=== PATIENT | female | born 1990 | race Caucasian/White ===

== ENCOUNTER 2019-12-11 15:25 | Observation (INO) | payer OTHER ==
--- NOTE | 2019-12-11 16:12 | ED ---
General Adult HPI - General Chief complaint: Headache Stated complaint: Headache, dizziness Time Seen by Provider: 12/11/19 15:47 Source: patient Mode of arrival: ambulatory Limitations: no limitations - History of Present Illness Initial comments: Dictation was produced using [employer] dictation software. please excuse any grammatical, word or spelling errors. This patient was cared for during a federal and state declared state of emergency secondary to Covid 19 Chief Complaint: 29-year-old female with no significant comorbid disease presents with headache and hair loss History of Present Illness: 89-year-old female for the last 2 weeks she's been having these intermittent headaches that would occur spontaneously. Patient states is localized to the right temporal area. States it radiates down the face. Patient states she'll also get these intermittent dizzy spells. Patient has any symptoms at this time. She decided to come to the emergency Department earlier because of the current pandemic. Patient denies any medical problems. She does have strong family history of cancer. Patient denies any vision loss. She denies any exacerbating or mitigating factors. Denies any temporal relation or association with time of day. The ROS documented in this emergency department record has been reviewed and confirmed by me. Those systems with pertinent positive or negative responses have been documented in the HPI. All other systems are other negative and/or noncontributory. PHYSICAL EXAM: General Impression: Alert and oriented x3, not in acute distress HEENT: Normocephalic atraumatic, extra-ocular movements intact, pupils equal and reactive to light bilaterally, mucous membranes moist. Cardiovascular: Heart regular rate and rhythm Chest: Able to complete full sentences, no retractions, no tachypnea Abdomen: Bowel sounds present, abdomen soft, non-tender, non-distended, no organomegaly Musculoskeletal: Pulses present and equal in all extremities, no peripheral edema Motor: no focal deficits noted Neurological: CN II-XII grossly intact, no focal motor or sensory deficits noted, no ataxia, gait intact Skin: Intact with no visualized rashes. Missing hair over the right temporal area. Scalp skin does not have any rash Psych: Normal affect and mood ED course: 29-year-old male presents with headache and hair loss. signs upon arrival are within acceptable limits. Patient has benign neurologic exam Laboratory evaluation obtained. CBC, coag panel, metabolic panel is unremarkable. Urine hCG is negative. Computed tomography scan of the brain shows no acute processes. There is a partially empty sella which may be incidental finding. Patient reevaluated bedside. Patient's well-appearing. Patient denies any visual changes. There is some concern for pseudotumor cerebri. Patient be admitted with consultation to neurology for neurologic evaluation possibly further workup. - Related Data Home Medications Medication Instructions Recorded Confirmed No Known Home Medications 01/08/14 01/08/14 Allergies Allergy/AdvReac Type Severity Reaction Status Date / Time No Known Allergies Allergy Verified 12/11/19 15:41 Review of Systems ROS Statement: Those systems with pertinent positive or pertinent negative responses have been documented in the HPI. ROS Other: All systems not noted in ROS Statement are negative. Past Medical History Past Medical History: Eye Disorder Additional Past Medical History / Comment(s): cataracts History of Any Multi-Drug Resistant Organisms: None Reported Additional Past Surgical History / Comment(s): right eye cataract Past Anesthesia/Blood Transfusion Reactions: No Reported Reaction Past Psychological History: No Psychological Hx Reported Smoking Status: Never smoker Past Alcohol Use History: Occasional Past Drug Use History: None Reported General Exam Limitations: no limitations Course Vital Signs 12/11/19 12/11/19 15:39 17:33 Temperature 98.8 F 99 F Pulse Rate 95 69 Respiratory 18 18 Rate Blood Pressure 144/85 142/90 O2 Sat by Pulse 99 98 Oximetry Medical Decision Making - Lab Data Result diagrams: 12/11/19 16:30 12/11/19 16:30 Lab Results 12/11/19 12/11/19 12/11/19 Range/Units 16:30 16:30 16:30 WBC 10.6 (3.8-10.6) k/uL RBC 5.06 (3.80-5.40) m/uL Hgb 14.2 (11.4-16.0) gm/dL Hct 42.6 (34.0-46.0) % MCV 84.1 (80.0-100.0) fL MCH 28.0 (25.0-35.0) pg MCHC 33.3 (31.0-37.0) g/dL RDW 14.3 (11.5-15.5) % Plt Count 396 (150-450) k/uL Neutrophils % 57 % Lymphocytes % 33 % Monocytes % 6 % Eosinophils % 1 % Basophils % 0 % Neutrophils # 6.1 (1.3-7.7) k/uL Lymphocytes # 3.5 (1.0-4.8) k/uL Monocytes # 0.6 (0-1.0) k/uL Eosinophils # 0.2 (0-0.7) k/uL Basophils # 0.0 (0-0.2) k/uL PT 9.6 (9.0-12.0) sec INR 0.9 (<1.2) APTT 23.2 (22.0-30.0) sec Sodium 138 (137-145) mmol/L Potassium 4.0 (3.5-5.1) mmol/L Chloride 107 (98-107) mmol/L Carbon Dioxide 25 (22-30) mmol/L Anion Gap 6 mmol/L BUN 11 (7-17) mg/dL Creatinine 0.69 (0.52-1.04) mg/dL Est GFR (CKD-EPI)AfAm >90 (>60 ml/min/1.73 sqM) Est GFR (CKD-EPI)NonAf >90 (>60 ml/min/1.73 sqM) Glucose 116 H (74-99) mg/dL Calcium 9.3 (8.4-10.2) mg/dL Ionized Calcium Dino 5.1 (4.5-5.3) mg/dL Magnesium 2.0 (1.6-2.3) mg/dL TSH 1.950 (0.465-4.680) mIU/L Urine HCG, Qual (Not Detectd) 12/11/19 Range/Units 16:30 WBC (3.8-10.6) k/uL RBC (3.80-5.40) m/uL Hgb (11.4-16.0) gm/dL Hct (34.0-46.0) % MCV (80.0-100.0) fL MCH (25.0-35.0) pg MCHC (31.0-37.0) g/dL RDW (11.5-15.5) % Plt Count (150-450) k/uL Neutrophils % % Lymphocytes % % Monocytes % % Eosinophils % % Basophils % % Neutrophils # (1.3-7.7) k/uL Lymphocytes # (1.0-4.8) k/uL Monocytes # (0-1.0) k/uL Eosinophils # (0-0.7) k/uL Basophils # (0-0.2) k/uL PT (9.0-12.0) sec INR (<1.2) APTT (22.0-30.0) sec Sodium (137-145) mmol/L Potassium (3.5-5.1) mmol/L Chloride (98-107) mmol/L Carbon Dioxide (22-30) mmol/L Anion Gap mmol/L BUN (7-17) mg/dL Creatinine (0.52-1.04) mg/dL Est GFR (CKD-EPI)AfAm (>60 ml/min/1.73 sqM) Est GFR (CKD-EPI)NonAf (>60 ml/min/1.73 sqM) Glucose (74-99) mg/dL Calcium (8.4-10.2) mg/dL Ionized Calcium Dino (4.5-5.3) mg/dL Magnesium (1.6-2.3) mg/dL TSH (0.465-4.680) mIU/L Urine HCG, Qual Not Detected (Not Detectd) Disposition Clinical Impression: Headache Disposition: ADMITTED IP TO THIS [facility] Condition: Fair Referrals: None,Stated [Primary Care Provider] - 1-2 days Decision Time: 18:08
[2019-12-11 16:40] LABS: Ionized Calcium 5.1 mg/dL (4.5-5.3)
[2019-12-11 16:47] LABS: INR 0.9 (<1.2); Partial Thromboplastin Time 23.2 sec (22.0-30.0); Prothrombin Time 9.6 sec (9.0-12.0)
[2019-12-11 16:48] LABS: African American GFR (CKD) >90 (>60 ml/min/1.73 sqM); Anion Gap 6 mmol/L; Blood Urea Nitrogen 11 mg/dL (7-17); Calcium 9.3 mg/dL (8.4-10.2); Carbon Dioxide 25 mmol/L (22-30); Chloride 107 mmol/L (98-107); Glucose 116 mg/dL (74-99); Non-African American GFR(CKD) >90 (>60 ml/min/1.73 sqM); Sodium 138 mmol/L (137-145)
[2019-12-11 16:50] LABS: Basophils % (A) 0 %; Eosinophils # (A) 0.2 k/uL (0-0.7); Eosinophils % (A) 1 %; HCT 42.6 % (34.0-46.0); HGB 14.2 gm/dL (11.4-16.0); Lymphocytes # (A) 3.5 k/uL (1.0-4.8); Lymphocytes % (A) 33 %; MCHC 33.3 g/dL (31.0-37.0); MCV 84.1 fL (80.0-100.0); Mean Platelet Volume 7.5; Monocytes # (A) 0.6 k/uL (0-1.0); Monocytes % (A) 6 %; Neutrophils # (A) 6.1 k/uL (1.3-7.7); Neutrophils % (A) 57 %; Platelet Count 396 k/uL (150-450); RBC 5.06 m/uL (3.80-5.40); RDW 14.3 % (11.5-15.5); WBC 10.6 k/uL (3.8-10.6)
--- NOTE | 2019-12-11 17:14 | CT ---
EXAMINATION TYPE: CT brain wo con DATE OF EXAM: 12/11/2019 COMPARISON: 05/14/2013 HISTORY: 29-year-old female headache TECHNIQUE: Examination was done in axial plane without intravenous contrast. Coronal and sagittal r econstructions performed. CT DLP: 1098.4 mGycm Automated exposure control for dose reduction was used. FINDINGS: There is no evidence of acute intracranial hemorrhage, acute ischemic changes, mass, mass-effect, or extra-axial fluid collection. There is no effacement of cerebral sulci or basal subarachnoid cister ns. There is no hydrocephalus. There is no midline shift. Pascual-white matter distinction is preserv ed. Partially empty sella which may be an incidental finding. Paranasal sinuses and mastoid air cells are pneumatized. IMPRESSION: Partially empty sella may be an incidental finding. Correlate for possibility of pseudotumor cerebri in this patient demographic. Otherwise, no acute intracranial abnormality seen.
[2019-12-11] MEDS ORDERED: NALOXONE 0.4 MG/ML 1 ML VIAL IV PRN (18:06)
[2019-12-11] MEDS ORDERED: SODIUM CHLORIDE 0.9% 1,000 ML IV SCH (18:15)
[2019-12-11 21:56] LABS: T4, Free (Free Thyroxine) 0.87 ng/dL (0.78-2.19)
[2019-12-11] MEDS ORDERED: MECLIZINE 12.5 MG TAB PO PRN (22:35)
--- NOTE | 2019-12-12 00:14 | HP ---
HISTORY AND PHYSICAL 29-year-old white female was admitted to the hospital for headache, dizziness, right side of the head. She is found to have high blood pressure since being in the hospital. She was also complaining of hair loss. Pain is in the right yarsanism area going down her right face. She has intermittent dizzy spells. She denies any history of medical problems. There is a strong family history of cancer. CT scan of the head was suspicious for pseudotumor cerebri and empty sella syndrome. REVIEW OF SYSTEMS: Fourteen-point review of systems negative except for mentioned in HPI. MEDICATIONS: None. PAST MEDICAL HISTORY: Other past medical history of history of possible hypertension. PHYSICAL EXAMINATION: Vital signs stable. Afebrile. Endocrine: BMI is over 40. Cardiovascular S1-S2. LUNGS: Clear. GI soft. Hematology: Negative Homans. Blood pressure is 140s over 80s to 90s, pulse is in 90s to 100, temp 98-99. Labs reviewed. ASSESSMENT AND PLAN: 1. Hypertension acceleration. 2. Dizziness. 3. Chronic cephalgia on the right side of the head. 4. Await neurologic recommendations. 5. Possible start Antivert. 6. Possibly some blood pressure medication and see if that helps the dizziness. MMODL / IJN: [id number] /
[2019-12-12 13:38] LABS: Hemoglobin A1C 5.4 % (4.0-6.0)
[2019-12-12 14:04] VITALS: BP 144/87; PULSE 82; TEMP 98.6
[2019-12-12 16:23] VITALS: RESP 17
--- NOTE | 2019-12-12 17:18 | P.CNNES ---
History of Present Illness Consult date: 12/12/19 Reason for Consult: headache, possible pseudotumor cerebri Chief complaint: headache History of Present Illness: The patient is a 29-year-old female who is seen in neurologic consultation on December 12, 2019, via teleneurology. The patient reports having had "bad headaches that feel like I'm being tased", since November 29, 2019. She says they are increasing in frequency over the past 2 weeks. In addition to the pain, the patient reports that she is losing her hair, at the same location the pain occurs. The pain is occurring on the right side of her head. She reports occasional numbness and dizziness. The patient also notes some right sided tingling when the pain is present. This pain will last anywhere from 10 minutes to one and half hours. Patient has not found anything to relieve her pain. Patient notes that following the pain, her face feels swollen. Patient reports some blurring of vision from her right eye, when the pain is present. She denies eye pain. Patient denies photophobia and phonophobia. She does report nausea and vomiting. She denies tinnitus and hearing loss. The patient says the pain occurs randomly and sometimes she will have a twitch of her right eye, prior to the onset of the pain. The patient does report having been diagnosed with cluster headaches in the past. She has not seen a neurologist. The patient denies changes in appetite. She denies weight gain and weight loss. She does report feeling cold when other people are comfortable. She denies constipation and diarrhea. Review of Systems See history of chief complaint Past Medical History Past Medical History: Eye Disorder Additional Past Medical History / Comment(s): cataracts History of Any Multi-Drug Resistant Organisms: None Reported Additional Past Surgical History / Comment(s): right eye cataract Past Anesthesia/Blood Transfusion Reactions: No Reported Reaction Past Psychological History: No Psychological Hx Reported Smoking Status: Never smoker Past Alcohol Use History: Occasional Past Drug Use History: None Reported Medications and Allergies Home Medications Medication Instructions Recorded Confirmed Type No Known Home Medications 01/08/14 12/11/19 History Allergies Allergy/AdvReac Type Severity Reaction Status Date / Time No Known Allergies Allergy Verified 12/11/19 18:09 Physical Examination - Vital Signs Vital Signs: Vital Signs Temp Pulse Pulse Resp BP BP Pulse Ox 12/12/19 14:04 98.6 F 82 15 144/87 97 12/12/19 07:40 16 12/12/19 07:00 98.1 F 77 15 116/76 98 12/12/19 03:45 98.3 F 90 147/92 97 12/12/19 00:00 85 18 12/11/19 20:30 98.3 F 85 18 151/99 99 12/11/19 19:05 98.1 F 67 18 164/101 99 12/11/19 17:33 99 F 69 18 142/90 98 12/11/19 15:39 98.8 F 95 18 144/85 99 Intake and Output 12/12/19 12/12/19 12/12/19 06:59 14:59 22:59 Intake Total 160 Balance 160 Intake: Intake, IV Titration 160 Amount Sodium Chloride 0.9% 1, 160 000 ml @ 20 mls/hr IV . Q24H LUIS E Rx#:[id number] Other: Voiding Method Toilet Toilet # Voids 1 1 Gen.: The patient is in no acute distress. She is obese. HEENT: Head is atraumatic, normocephalic. There is an area of her loss in the right temporal parietal region. There is no rash or redness of the skin. Fundus not visualized. There is no scleral icterus. Because membranes are moist. Neck: Supple Heart: Regular rate and rhythm Extremities: Without edema Neurological examination Mental status: The patient is awake, alert and oriented 3. Her speech is clear. Cranial nerves: Pupils are equal, round and reactive to light. Visual rice are full to confrontation. Extraocular muscles are intact. There is no nystagmus. Facial sensations intact. There is no facial asymmetry. Hearing is grossly intact. Uvula and palate are midline. Shoulder shrug is symmetric. Motor: Strength is 5/5 throughout Coordination: Finger to nose and rapid alternating movements are intact. Sensation: Grossly intact to light touch Deep tendon reflexes: 2+/4+ throughout Gait: Steady Results - Laboratory Findings CBC and BMP: 12/11/19 16:30 12/11/19 16:30 Abnormal Lab Findings: Abnormal Labs 12/11/19 16:30 Glucose 116 H Assessment and Plan Assessment: Impressions: 1. Cephalgia, not consistent with pseudotumor cerebri 2. Empty sella per CT scan is a normal variant Plan: Recommendations: 1. MRI of the brain with and without gadolinium, as an outpatient 2. Thyroid studies for etiology of her loss 3. Patient should follow up with a neurologist regarding her headaches as well as results of the brain MRI Time with Patient: Greater than 30 (spent 45 minutes with patient via teleneurology)
== END 2019-12-12 14:41 | disposition home or self-care (01) ==
LOC: EC 15:25 → 4SSUR 18:06
PROVIDERS: ADMIT Family Medicine; ATTEND Family Medicine
DX: R51 Headache (principal); R42 Dizziness and giddiness; L65.9 Nonscarring hair loss, unspecified; I10 Essential (primary) hypertension; H26.9 Unspecified cataract; R20.0 Anesthesia of skin; R20.2 Paresthesia of skin; H53.8 Other visual disturbances; R11.2 Nausea with vomiting, unspecified; E66.9 Obesity, unspecified; Z68.41 Body mass index [BMI] 40.0-44.9, adult; Z98.41 Cataract extraction status, right eye; Z86.69 Personal history of other diseases of the nervous system and sense organs; Z80.9 Family history of malignant neoplasm, unspecified
CPT/HCPCS: 99285; 36415; 84439; 84481; 80048; 84443; 82330; 82533; 83735; 85025; 85610; 85730; 81025; 84146; 83036; 70450; G0378 ×2; 84479

== ENCOUNTER → 2020-02-04 | Outpatient (CLI) | payer OTHER ==
--- NOTE | 2020-02-05 13:28 | MR ---
EXAMINATION TYPE: MR brain wo/w con DATE OF EXAM: 02/04/2020 COMPARISON: CT brain 12/11/2019 HISTORY: Empty Sella syndrome, Pituitary Gland disorder TECHNIQUE: Multiplanar, multisequence images of the brain and brainstem is performed without and with IV contras t, utilizing 12 mL intravenous Gadavist . FINDINGS: Diffusion weighted images demonstrate no evidence of a recent infarct or other diffusion ab normality. There is no extra-axial fluid collection or significant white matter signal abnormality. The ventricular system and cisternal spaces are normal in size and appearance. The brain volume is age appropriate. Midline structures demonstrate stable morphology. Partially empty sella is noted. Corpus callosum, ce rvical medullary junction and cerebellopontine angles are normal. The craniocervical junction appears within normal limits. Post contrast images demonstrate no abnormal enhancement. The dural venous si nuses appear patent. The visualized sinuses are clear and the globes are intact. IMPRESSION: No acute abnormality. Partially empty sella is stable.
== END | disposition home or self-care (01) ==
LOC: RADMRIMAIN 14:41
PROVIDERS: ATTEND Internal Medicine
DX: E23.6 Other disorders of pituitary gland (principal)
CPT/HCPCS: 70553; A9585

== ENCOUNTER → 2020-03-24 | Outpatient (CLI) | payer OTHER ==
--- NOTE | 2020-03-25 10:13 | USB ---
Reason for exam: clinical finding. Indicated problem(s): palpable abnormality in both breasts. Physical Findings: Nurse Summary: 2cm right movable nodule, 1cm left movable nodule (nurse dw). US Breast Limited BILAT Right complete breast ultrasound includes all four quadrants, the retroareolar region and axilla. Finding demonstrates a 5.4 x 3.1 x 2.1cm mixed lesion at 1 o'clock and a 1.0 x 1.0 x 0.6cm mixed lesion at the posterior nipple. Left limited breast ultrasound including focal area of concern, retroareolar and axilla demonstrates a 0.8 x 1.4 x 0.5cm mixed lesion at 10 o'clock. These results were verbally communicated with the patient and result sheet given to the patient on 03/24/20. ASSESSMENT: Probably benign, BI-RAD 3 RECOMMENDATION: Ultrasound of the right breast in 6 months.
== END | disposition home or self-care (01) ==
LOC: RADUSWWP 14:47
PROVIDERS: ATTEND Internal Medicine
DX: N63.10 Unspecified lump in the right breast, unspecified quadrant (principal)

== ENCOUNTER 2020-05-04 21:22 | Emergency (ER) | payer OTHER ==
[2020-05-04 21:29] VITALS: BP 137/90; PULSE 118; RESP 22; TEMP 100.8
[2020-05-04] MEDS ORDERED: IBUPROFEN 600 MG TAB PO STA (21:54)
[2020-05-04] MEDS ORDERED: SODIUM CHLORIDE 0.9% 1,000 ML IV STA ×2 (21:54)
[2020-05-04] MEDS ORDERED: SODIUM CHLORIDE 0.9% 500 ML 500 ML IV STA (21:54)
[2020-05-04] MEDS ORDERED: ACETAMINOPHEN TAB 500 MG TAB PO STA (21:54)
[2020-05-04] MEDS ORDERED: METOCLOPRAMIDE 5 MG/ML 2 ML VIAL IVP STA (22:04)
[2020-05-04] MEDS ORDERED: MORPHINE SULFATE 4 MG/ML SYRINGE IVP STA (22:04)
[2020-05-04] MEDS ORDERED: diphenhydrAMINE 50 MG/ML 1 ML VIAL IVP STA (22:04)
--- NOTE | 2020-05-04 22:07 | ED ---
Headache HPI - General Chief Complaint: Headache Stated Complaint: Headache Time Seen by Provider: 05/04/20 21:54 Source: RN notes reviewed (`), old records reviewed Mode of arrival: ambulatory Limitations: no limitations - History of Present Illness Initial Comments: This is a 3-year-old female DF she presents today for evaluation regards to fever not feeling well sleeping for the last 3 days. Patient also states that she has had acute on chronic headache she states she always does suffer from a headache but states is about her same headache. She states she's been eating and drinking okay no travel history no known sick contacts no nausea vomiting diarrhea no throat pain no chest pain no cough no abdominal pain MD Complaint: headache, other (Fever weakness) -: days(s) (3) Onset Description: gradual Location: frontal, temporal Severity: mild Severity scale (1-10): 3 Quality: throbbing, pulsatile Consistency: constant Improves With: nothing Associated Symptoms: fever, nausea Treatments Prior to Arrival: none - Related Data Home Medications Medication Instructions Recorded Confirmed No Known Home Medications 01/08/14 12/11/19 Allergies Allergy/AdvReac Type Severity Reaction Status Date / Time No Known Allergies Allergy Verified 05/04/20 22:43 Review of Systems ROS Statement: Those systems with pertinent positive or pertinent negative responses have been documented in the HPI. ROS Other: All systems not noted in ROS Statement are negative. Past Medical History Past Medical History: Eye Disorder Additional Past Medical History / Comment(s): cataracts, spinal fluid, Empty Sella Syndrome History of Any Multi-Drug Resistant Organisms: None Reported Additional Past Surgical History / Comment(s): right eye cataract Past Anesthesia/Blood Transfusion Reactions: No Reported Reaction Past Psychological History: No Psychological Hx Reported Smoking Status: Never smoker Past Alcohol Use History: Occasional Past Drug Use History: None Reported General Exam Limitations: no limitations General appearance: alert, in no apparent distress Head exam: Present: atraumatic, normocephalic, normal inspection Eye exam: Present: normal appearance, PERRL, EOMI. Absent: scleral icterus, conjunctival injection, periorbital swelling ENT exam: Present: normal exam, mucous membranes moist Neck exam: Present: normal inspection. Absent: tenderness, meningismus, lymphadenopathy Respiratory exam: Present: normal lung sounds bilaterally. Absent: respiratory distress, wheezes, rales, rhonchi, stridor Cardiovascular Exam: Present: regular rate, normal rhythm, normal heart sounds. Absent: systolic murmur, diastolic murmur, rubs, gallop, clicks GI/Abdominal exam: Present: soft, normal bowel sounds. Absent: distended, tenderness, guarding, rebound, rigid Extremities exam: Present: normal inspection, full ROM, normal capillary refill. Absent: tenderness, pedal edema, joint swelling, calf tenderness Back exam: Present: normal inspection Neurological exam: Present: alert, oriented X3, CN II-XII intact Psychiatric exam: Present: normal affect, normal mood Skin exam: Present: warm, dry, intact, normal color. Absent: rash Course Vital Signs 05/04/20 21:24 Temperature 100.8 F H Pulse Rate 118 H Respiratory 22 Rate Blood Pressure 137/90 O2 Sat by Pulse 97 Oximetry - Reevaluation(s) Reevaluation #1: 05/04/20 22:07 Medical record is reviewed Reevaluation #2: 05/04/20 23:07 A she does have significant improvement here in the ER with Reevaluation #3: 05/04/20 22:45 Patient feels much better headache is much improved fevers much improved Medical Decision Making - Medical Decision Making 30-year-old female DEL with increased sleeping weakness not feeling well and fever today. Patient will admit for continued evaluation rule out coronavirus - Lab Data Result diagrams: 05/04/20 22:15 05/04/20 22:15 Lab Results 05/04/20 05/04/20 05/04/20 Range/Units 22:15 22:15 22:15 WBC 10.8 H (3.8-10.6) k/uL RBC 4.94 (3.80-5.40) m/uL Hgb 13.5 (11.4-16.0) gm/dL Hct 41.3 (34.0-46.0) % MCV 83.7 (80.0-100.0) fL MCH 27.4 (25.0-35.0) pg MCHC 32.7 (31.0-37.0) g/dL RDW 13.3 (11.5-15.5) % Plt Count 329 (150-450) k/uL Neutrophils % 67 % Lymphocytes % 22 % Monocytes % 7 % Eosinophils % 1 % Basophils % 1 % Neutrophils # 7.3 (1.3-7.7) k/uL Lymphocytes # 2.4 (1.0-4.8) k/uL Monocytes # 0.8 (0-1.0) k/uL Eosinophils # 0.1 (0-0.7) k/uL Basophils # 0.1 (0-0.2) k/uL Sodium 134 L (137-145) mmol/L Potassium 4.2 (3.5-5.1) mmol/L Chloride 103 (98-107) mmol/L Carbon Dioxide 24 (22-30) mmol/L Anion Gap 7 mmol/L BUN 9 (7-17) mg/dL Creatinine 0.93 (0.52-1.04) mg/dL Est GFR (CKD-EPI)AfAm >90 (>60 ml/min/1.73 sqM) Est GFR (CKD-EPI)NonAf 83 (>60 ml/min/1.73 sqM) Glucose 111 H (74-99) mg/dL Plasma Lactic Acid Ortega (0.7-2.0) mmol/L Calcium 8.6 (8.4-10.2) mg/dL Total Bilirubin 0.3 (0.2-1.3) mg/dL AST 27 (14-36) U/L ALT 29 (4-34) U/L Alkaline Phosphatase 49 (38-126) U/L Total Protein 6.0 L (6.3-8.2) g/dL Albumin 3.6 (3.5-5.0) g/dL Urine Color Colorless Urine Appearance Clear (Clear) Urine pH 6.5 (5.0-8.0) Ur Specific [place] 1.001 (1.001-1.035) Urine Protein Negative (Negative) Urine Glucose (UA) Negative (Negative) Urine Ketones Negative (Negative) Urine Blood Negative (Negative) Urine Nitrite Negative (Negative) Urine Bilirubin Negative (Negative) Urine Urobilinogen <2.0 (<2.0) mg/dL Ur Leukocyte Esterase Negative (Negative) 05/04/20 Range/Units 22:15 WBC (3.8-10.6) k/uL RBC (3.80-5.40) m/uL Hgb (11.4-16.0) gm/dL Hct (34.0-46.0) % MCV (80.0-100.0) fL MCH (25.0-35.0) pg MCHC (31.0-37.0) g/dL RDW (11.5-15.5) % Plt Count (150-450) k/uL Neutrophils % % Lymphocytes % % Monocytes % % Eosinophils % % Basophils % % Neutrophils # (1.3-7.7) k/uL Lymphocytes # (1.0-4.8) k/uL Monocytes # (0-1.0) k/uL Eosinophils # (0-0.7) k/uL Basophils # (0-0.2) k/uL Sodium (137-145) mmol/L Potassium (3.5-5.1) mmol/L Chloride (98-107) mmol/L Carbon Dioxide (22-30) mmol/L Anion Gap mmol/L BUN (7-17) mg/dL Creatinine (0.52-1.04) mg/dL Est GFR (CKD-EPI)AfAm (>60 ml/min/1.73 sqM) Est GFR (CKD-EPI)NonAf (>60 ml/min/1.73 sqM) Glucose (74-99) mg/dL Plasma Lactic Acid Ortega 1.1 (0.7-2.0) mmol/L Calcium (8.4-10.2) mg/dL Total Bilirubin (0.2-1.3) mg/dL AST (14-36) U/L ALT (4-34) U/L Alkaline Phosphatase (38-126) U/L Total Protein (6.3-8.2) g/dL Albumin (3.5-5.0) g/dL Urine Color Urine Appearance (Clear) Urine pH (5.0-8.0) Ur Specific [place] (1.001-1.035) Urine Protein (Negative) Urine Glucose (UA) (Negative) Urine Ketones (Negative) Urine Blood (Negative) Urine Nitrite (Negative) Urine Bilirubin (Negative) Urine Urobilinogen (<2.0) mg/dL Ur Leukocyte Esterase (Negative) - Radiology Data Radiology results: report reviewed (Chest x-rays negative for acute disease), image reviewed Disposition Clinical Impression: Fever, Weakness Narrative: ro COVID Disposition: ADMITTED IP TO THIS [facility] Condition: Good Is patient prescribed a controlled substance at d/c from ED?: No Referrals: Gertrude Quiles MD [Primary Care Provider] - 1-2 days
--- NOTE | 2020-05-04 22:14 | XR ---
EXAMINATION TYPE: XR chest 2V DATE OF EXAM: 05/04/2020 COMPARISON: 01/02/2012 HISTORY: Fever TECHNIQUE: FINDINGS: Heart is normal. Lungs are clear. Costophrenic angles are clear. There are no hilar masses. Bony thorax appears normal. IMPRESSION: Normal chest. No change.
[2020-05-04 22:28] LABS: Appearance,Urine Clear (Clear); Basophils # (A) 0.1 k/uL (0-0.2); Basophils % (A) 1 %; Bilirubin,Urine Negative (Negative); Blood,Urine Negative (Negative); Color,Urine Colorless; Eosinophils # (A) 0.1 k/uL (0-0.7); Eosinophils % (A) 1 %; Glucose,Urine (UA) Negative (Negative); HCT 41.3 % (34.0-46.0); HGB 13.5 gm/dL (11.4-16.0); Ketones,Urine Negative (Negative); Leukocyte Esterase,Urine Negative (Negative); Lymphocytes # (A) 2.4 k/uL (1.0-4.8); Lymphocytes % (A) 22 %; MCH 27.4 pg (25.0-35.0); MCHC 32.7 g/dL (31.0-37.0); MCV 83.7 fL (80.0-100.0); Mean Platelet Volume 7.4; Monocytes # (A) 0.8 k/uL (0-1.0); Monocytes % (A) 7 %; Neutrophils # (A) 7.3 k/uL (1.3-7.7); Neutrophils % (A) 67 %; Nitrite,Urine Negative (Negative); PH, Urine 6.5 (5.0-8.0); Platelet Count 329 k/uL (150-450); Protein,Urine Negative (Negative); RBC 4.94 m/uL (3.80-5.40); RDW 13.3 % (11.5-15.5); Specific Gravity,Urine 1.001 (1.001-1.035); Urobilinogen,Urine <2.0 mg/dL (<2.0); WBC 10.8 k/uL (3.8-10.6)
[2020-05-04 22:33] LABS: ALT 29 U/L (4-34); AST 27 U/L (14-36); African American GFR (CKD) >90 (>60 ml/min/1.73 sqM); Albumin 3.6 g/dL (3.5-5.0); Alkaline Phosphatase 49 U/L (38-126); Anion Gap 7 mmol/L; Blood Urea Nitrogen 9 mg/dL (7-17); Calcium 8.6 mg/dL (8.4-10.2); Carbon Dioxide 24 mmol/L (22-30); Chloride 103 mmol/L (98-107); Glucose 111 mg/dL (74-99); Non-African American GFR(CKD) 83 (>60 ml/min/1.73 sqM); Potassium 4.2 mmol/L (3.5-5.1); Sodium 134 mmol/L (137-145); Total Bilirubin 0.3 mg/dL (0.2-1.3)
== END 2020-05-04 23:18 | disposition other institution (70) ==
LOC: EC 21:22
DX: R53.1 Weakness (principal); R50.9 Fever, unspecified; R51 Headache; R11.0 Nausea
CPT/HCPCS: 36415; 80053; 83605; 85025; 81003; 87040; 71046; 99285; 96374; 96375 ×2; 96361; J2270; J1200; J2765

== ENCOUNTER → 2020-05-20 | Outpatient (CLI) | payer OTHER ==
[2020-05-20 15:23] VITALS: BP 133/88; PULSE 83; RESP 18; TEMP 98.2
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
--- NOTE | 2020-05-20 15:51 | P.PCN ---
Date of Procedure: 05/20/20 Preoperative Diagnosis: Aspiration cystic lesion right breast Postoperative Diagnosis: Same Procedure(s) Performed: Aspiration cystic area right breast Surgeon: Enma Perez Description of Procedure: The area of palpable change in the right breast at the 1 to 2 o'clock position was prepped using alcohol. A 22-gauge needle on a 10 mL syringe was inserted into the area of concern. Only approximately 1 mL of murky colored fluid was obtained. There was however resolution of the cystic lesion. The patient tolerated the procedure in stable condition. The specimen is sent to pathology for evaluation. This would not correspond to a 5 cm lesion which was described on ultrasound. She will follow up next week and depending on results of his pathology and May recommend ultrasound-guided aspiration of both breasts.
== END | disposition home or self-care (01) ==
LOC: WWCWWP 14:55
PROVIDERS: ATTEND Surgery
DX: N64.9 Disorder of breast, unspecified (principal)
CPT/HCPCS: 88108; 88305

== ENCOUNTER → 2020-09-29 | Outpatient (CLI) | payer OTHER ==
[2020-09-29 09:40] VITALS: BP 129/91; PULSE 90; RESP 18; TEMP 98.3
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
== END | disposition home or self-care (01) ==
LOC: WWCWWP 09:29
PROVIDERS: ATTEND Surgery
DX: Z53.9 Procedure and treatment not carried out, unspecified reason (principal)

== ENCOUNTER 2020-12-04 13:18 | Emergency (ER) | payer OTHER ==
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
[2020-12-04] MEDS ORDERED: diphenhydrAMINE 50 MG/ML 1 ML VIAL IVP STA (16:46)
[2020-12-04] MEDS ORDERED: KETOROLAC 15 MG/ML 1 ML VIAL IVP STA (16:46)
[2020-12-04] MEDS ORDERED: METOCLOPRAMIDE 5 MG/ML 2 ML VIAL IVP STA (16:46)
[2020-12-04] MEDS ORDERED: SODIUM CHLORIDE 0.9% 500 ML 500 ML IV STA (16:46)
[2020-12-04] MEDS ORDERED: DEXAMETHASONE SOD PHOSPHATE 10 MG/ML 1 ML VIAL IV STA (16:47)
[2020-12-04] MEDS ORDERED: MAGNESIUM SULFATE-D5W PMX 1 GM in DEXTROSE/WATER 1 100ML.BAG IVPB ONE (16:47)
[2020-12-04 17:19] LABS: Basophils # (A) 0.1 k/uL (0-0.2); Basophils % (A) 1 %; Eosinophils # (A) 0.2 k/uL (0-0.7); Eosinophils % (A) 1 %; HCT 39.2 % (34.0-46.0); HGB 13.7 gm/dL (11.4-16.0); Lymphocytes # (A) 3.5 k/uL (1.0-4.8); Lymphocytes % (A) 27 %; MCH 28.7 pg (25.0-35.0); MCHC 34.8 g/dL (31.0-37.0); MCV 82.4 fL (80.0-100.0); Mean Platelet Volume 8.5; Monocytes # (A) 0.7 k/uL (0-1.0); Monocytes % (A) 6 %; Neutrophils % (A) 63 %; Platelet Count 416 k/uL (150-450); RBC 4.76 m/uL (3.80-5.40); RDW 13.1 % (11.5-15.5); WBC 12.7 k/uL (3.8-10.6)
[2020-12-04 17:28] LABS: Appearance,Urine Clear (Clear); Bilirubin,Urine Negative (Negative); Blood,Urine Moderate (Negative); Color,Urine Yellow; Glucose,Urine (UA) Negative (Negative); Ketones,Urine Negative (Negative); Leukocyte Esterase,Urine Negative (Negative); Mucus,Urine Rare /hpf; Nitrite,Urine Negative (Negative); Protein,Urine Negative (Negative); RBC,Urine 3 /hpf (0-5); Specific Gravity,Urine 1.019 (1.001-1.035); Squamous Epithelial Cell,Urine 3 /hpf (0-4); Urobilinogen,Urine <2.0 mg/dL (<2.0); WBC,Urine 1 /hpf (0-5)
[2020-12-04 17:29] LABS: ALT 22 U/L (4-34); AST 31 U/L (14-36); African American GFR (CKD) >90 (>60 ml/min/1.73 sqM); Albumin 3.9 g/dL (3.5-5.0); Alkaline Phosphatase 43 U/L (38-126); Anion Gap 5 mmol/L; Blood Urea Nitrogen 16 mg/dL (7-17); Carbon Dioxide 26 mmol/L (22-30); Chloride 103 mmol/L (98-107); Glucose 94 mg/dL (74-99); Non-African American GFR(CKD) >90 (>60 ml/min/1.73 sqM); Potassium 4.6 mmol/L (3.5-5.1); Sodium 134 mmol/L (137-145); Total Bilirubin 0.5 mg/dL (0.2-1.3); Total Protein 6.9 g/dL (6.3-8.2)
[2020-12-04 18:28] VITALS: BP 125/75; PULSE 68; RESP 16; TEMP 98.2
== END 2020-12-04 18:33 | disposition home or self-care (01) ==
LOC: EC 13:18
DX: R51.9 Headache, unspecified (principal); Z20.822 Contact with and (suspected) exposure to COVID-19
CPT/HCPCS: 36415; 80053; 85025; 81001; 81025; 87635; 99284; 96374; 96375; 96361; J1200; J1100; J2765; J3475; J1885

== ENCOUNTER → 2020-12-08 | Outpatient (CLI) | payer OTHER ==
--- NOTE | 2020-12-12 09:51 | MM ---
Reason for exam: clinical finding. History: Family history of breast cancer in paternal aunt at age 40. Physical Findings: Nurse Summary: 7cm nodule in the right breast at 1 o'clock and a 1cm nodule in the left breast at 11 o'clock (nurse TM). [facility] Diagnostic Mammo w CAD SUBHASH Bilateral CC, MLO, and XCCL view(s) were taken. There are scattered fibroglandular densities. Finding: There is a typically benign 28 x 38 mm high density, circumscribed oval mass in the lower inner quadrant, middle position of the right breast consistent with old hemotoma, corresponds to palpable. These results were verbally communicated with the patient and result sheet given to the patient on 12/08/20. ASSESSMENT: Incomplete: need additional imaging evaluation, BI-RAD 0 RECOMMENDATION: Ultrasound of both breasts.
--- NOTE | 2020-12-12 09:54 | USB ---
Reason for exam: additional evaluation requested from abnormal screening. History: Family history of breast cancer in paternal aunt at age 40. US Breast BILAT Right complete breast ultrasound includes all four quadrants, the retroareolar region and axilla. Finding demonstrates a 0.3 x 0.3 x 0.3cm oval, complex, cystic lesion at 12 o'clock, a 1.5 x 1.2 x 1.3cm round, mixed lesion at 1 o'clock, a 4.9 x 3.7 x 1.7cm oval, lobular, mixed lesion at 1 o'clock, a 0.6 x 0.5 x 0.6cm oval, cystic lesion at 2 o'clock, a 0.7 x 0.6 x 0.6cm oval, complex, cystic lesion at the posterior nipple and a 0.4 x 0.6 x 0.4cm oval, mixed lesion at the posterior nipple. Left complete breast ultrasound includes all four quadrants, the retroareolar region and axilla. Finding demonstrates a 0.6 x 0.8 x 0.5cm mixed lesion with vascularity at 10 o'clock BB. These results were verbally communicated with the patient and result sheet given to the patient on 12/08/20. ASSESSMENT: Benign, BI-RAD 2 RECOMMENDATION: Follow-up diagnostic mammogram of both breasts in 6 months. Manage patient on a clinical basis.
== END | disposition home or self-care (01) ==
LOC: RADMAMWWP 14:14
PROVIDERS: ATTEND Surgery
DX: N63.20 Unspecified lump in the left breast, unspecified quadrant (principal); Z80.3 Family history of malignant neoplasm of breast
CPT/HCPCS: 77066

== ENCOUNTER → 2020-12-15 | Outpatient (CLI) | payer OTHER ==
[2020-12-15 15:11] VITALS: BP 139/93; PULSE 100; RESP 18; TEMP 98.4
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
--- NOTE | 2020-12-15 15:46 | P.PCN ---
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 A 22-gauge needle on a 12 mL syringe was inserted into the area of concern. Using negative pressure was moved in and out of the area several samples were obtained. Fluid was not aspirated this did not appear to be a cyst. The specimen was sent for cytology. The patient will follow up next week for results.
== END | disposition home or self-care (01) ==
LOC: WWCWWP 14:46
PROVIDERS: ATTEND Surgery
DX: N62 Hypertrophy of breast (principal); N63.12 Unspecified lump in the right breast, upper inner quadrant

== ENCOUNTER → 2021-02-16 | Outpatient (CLI) | payer OTHER ==
[2021-02-16 13:36] VITALS: BP 143/101; PULSE 94; RESP 18; TEMP 97.5
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
== END ==
LOC: WWCWWP 13:27
PROVIDERS: ATTEND Surgery
DX: N63.12 Unspecified lump in the right breast, upper inner quadrant (principal); N60.01 Solitary cyst of right breast; N62 Hypertrophy of breast

== ENCOUNTER 2021-02-28 10:35 | Day surgery (SDC) | payer OTHER ==
[2021-02-23 14:29] VITALS: BMI 48.0
[~2021-02-28 10:35] MED LIST: HEPARIN SODIUM,PORCINE/PF 5,000 UNIT/0.5 ML SYRINGE SQ PRN; ceFAZolin 3 GM in SODIUM CHLORIDE 0.9% 100 ML IVPB PRN
[2021-02-28] MEDS ORDERED: LACTATED RINGERS 1,000 ML IV ONE ×2 (11:19→14:37)
[2021-02-28] MEDS: ONDANSETRON 4 MG/2 ML VIAL ONE ×2 (11:31→16:15)
[2021-02-28] MEDS ORDERED: SCOPOLAMINE 1.5MG/72HR PATCH TRANSDERM ONE (11:31)
[2021-02-28] MEDS ORDERED: DEXAMETHASONE SOD PHOSPHATE 4 MG/ML 1 ML VIAL IVP ONE (11:32)
[2021-02-28] MEDS ORDERED: fentaNYL (PF) 50 MCG/ML 2 ML AMP ONE (12:03)
[2021-02-28] MEDS ORDERED: HYDROmorphone (PF) 1 MG/ML ONE (12:03)
[2021-02-28] MEDS ORDERED: SUCCINYLCHOLINE CHLORIDE VIAL 200 MG/10 ML VIAL IV ONE (12:03)
[2021-02-28] MEDS ORDERED: PROPOFOL 10 MG/ML 20 ML VIAL IV ONE (12:03)
[2021-02-28] MEDS ORDERED: ROCURONIUM 10 MG/ML (5 ML VIAL) IV ONE (12:03)
[2021-02-28] MEDS ORDERED: LIDOCAINE 1% INJ 10MG/ML (20 ML MDV) ONE (12:03)
[2021-02-28] MEDS ORDERED: NEOSTIGMINE 1 MG/ML 10 ML VIAL ONE (12:03)
[2021-02-28] MEDS ORDERED: MIDAZOLAM 2 MG/2 ML VIAL ONE (12:03)
[2021-02-28] MEDS ORDERED: GLYCOPYRROLATE 0.2 MG/ML 2 ML VIAL ONE (12:03)
--- NOTE | 2021-02-28 15:19 | P.OP ---
Date of Procedure: 02/28/21 Preoperative Diagnosis: Mass right breast/macromastia Postoperative Diagnosis: Same Procedure(s) Performed: Right breast lumpectomy, via mammoplasty incision Anesthesia: MAHENDRA Surgeon: Enma Perez Estimated Blood Loss (ml): 30 IV fluids (ml): 1,000 Pathology: other (Skin and breast tissue, cystic mass right breast) Condition: stable Disposition: same day Indications for Procedure: Tiana is a 30-year-old white female with a recurrent mass in her right breast for which resection has been recommended. She has had an FNA performed of the area without definitive diagnosis. The patient also has macromastia and wishes this to be done via a mammoplasty approach. She was given the option of seeing plastic surgery and declined. The patient was seen in the preoperative area. The palpable mass was marked. Additionally lines were placed for the midline; the meridian and the new nipple location. Vertical lines were dropped from the new nipple location which were 11 cm each in length. The remainder of the incision espitia were were placed for the mammoplasty. The patient was brought to the operating room and following induction of anesthesia both breasts were prepped and draped in a sterile fashion. This was done via an inferior pedicle approach and the inferior pedicle was de- epithelialized. Following this the vertical limbs were dissected free and dissection along the superior medial vertical limb revealed the palpable mass in the breast. This was approximately a 4 x 3 cm cystic lesion which was consistent with what was found preoperative. The fluid was murky in nature. The cystic wall was not completely smooth and there was nodularity at the superior aspect of this. This was completely excised. Excision was close to the skin. Following this continued dissection of the flap was performed; dissection of the lateral flap was also performed. After this the area between the pedicle and the medial extent of the inferior incision was resected and this was repeated on the lateral aspect. The wound was well irrigated. Clips were placed within the area where the lesion had been removed. Surgicel in powder form was placed. The specimen was painted for orientation. The skin flaps were brought together and secured in place using 3-0 Vicryl suture. This was followed by running 4-0 Ethibond subcuticular suture. This was followed by a nylon skin suture. The nipple areolar complex had been marked with a suture and had been sutured over. The area where this was to be matured was marked with a #15 cookie cutter and resected. The skin was opened here and the nipple areolar complex was brought out and secured using 3-0 Vicryl suture followed by a subcuticular Monocryl and a running nylon skin suture. Prior to closure 2 TOSHIA drains were placed one medial and lateral and secured with nylon sutures. The patient tolerated the procedure in stable condition. All instrument and sponge counts were correct at the end of the case. The weight of the specimen was 1.1 pounds.
--- NOTE | 2021-02-28 15:21 | P.DS ---
Providers Attending physician: Enma Perez Primary care physician: Gertrude Quiles MD Plan - Discharge Summary Discharge Rx Participant: Yes New Discharge Prescriptions: No Action No Known Home Medications Discharge Medication List No Known Home Medications 01/08/14 [History] Follow up Appointment(s)/Referral(s): Enma Perez MD [STAFF PHYSICIAN] - 03/09/21 3:20 pm Patient Instructions/Handouts: *Surgery [facility] - Scopalamine Patch Instructions Activity/Diet/Wound Care/Special Instructions: Do not drive today, or if taking narcotic pain medication May shower after 48 hours Wear bra at all times Discharge Disposition: HOME SELF-CARE
[2021-02-28 15:32] VITALS: TEMP 98
[2021-02-28 16:32] VITALS: RESP 16
[2021-02-28 17:52] VITALS: BP 124/79; PULSE 88
== END 2021-02-28 17:55 | disposition home or self-care (01) ==
LOC: OR 10:35
PROVIDERS: ATTEND Surgery
DX: N62 Hypertrophy of breast (principal); Z80.8 Family history of malignant neoplasm of other organs or systems
CPT/HCPCS: 19301; 81025; 88305; J2250; J0330; J1100; J2710; J0690; J2405; J2001; J3010; J1170; J2704; J1644

== ENCOUNTER 2021-03-05 03:53 | Emergency (ER) | payer OTHER ==
[2021-03-05 04:02] VITALS: BP 147/102; PULSE 97; RESP 16; TEMP 97.8
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
== END 2021-03-05 04:49 | disposition home or self-care (01) ==
LOC: EC 03:53
DX: K94.13 Enterostomy malfunction (principal)
CPT/HCPCS: 99282

== ENCOUNTER 2021-03-09 15:24 | Inpatient (IN) | payer OTHER ==
[2021-03-09] MEDS ORDERED: NALOXONE 0.4 MG/ML 1 ML VIAL IV PRN (16:26)
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
[2021-03-09] MEDS ORDERED: VANCOMYCIN IV PER PHARMACY 1 EACH MISC MISCELLANE PRN ×2 (16:42→19:22)
[2021-03-09] MEDS ORDERED: VANCOMYCIN 2,000 MG in SODIUM CHLORIDE 0.9% 500 ML 500 ML IVPB ONE (18:00)
[2021-03-09 18:31] LABS: African American GFR (CKD) >90 (>60 ml/min/1.73 sqM); Non-African American GFR(CKD) >90 (>60 ml/min/1.73 sqM)
[2021-03-09] MEDS ORDERED: HYDROcodone/APAP 5-325MG 1 EACH TAB PO PRN (19:22)
[2021-03-09] MEDS ORDERED: MORPHINE SULFATE 2 MG/ML SYRINGE IVP PRN (19:23)
[2021-03-09] MEDS ORDERED: ONDANSETRON 4 MG/2 ML VIAL IVP PRN (19:23)
[2021-03-09] MEDS ORDERED: ACETAMINOPHEN TAB 325 MG TAB PO PRN (19:23)
[2021-03-09] MEDS: DEXTROSE 5%-0.45% NACL 1,000 ML IV SCH (19:31)
[2021-03-09] MEDS: HYDROcodone/APAP 5-325MG 1 EACH TAB PO PRN (19:39)
--- NOTE | 2021-03-09 20:00 | P.HPIM ---
History of Present Illness H&P Date: 03/09/21 30 years old female patient of mine with past medical history of pseudotumor cerebri, hypertension, empty sella syndrome, migraine who recently saw Dr. Radha ramos for mass in the right breast on 05/19/20. Patient underwent bilateral breast ultrasound which revealed bilateral cystic lesions. Patient underwent aspiration for the cyst on the right breast which resolved for a brief period then reoccurred. Patient underwent multiple aspirations in the cyst of the right breast and finally underwent removal of the mass on 02/28/21 the radius reduction mammoplasty incision. Patient was disheveled with [address]. Patient noted increased drainage around the drain several days ago and was seen in the ER and was diagnosed as cellulitis and was started on Keflex. Patient was seen by the surgeon today and was admitted for medical management. Vitals were reviewed patient is afebrile pulse 105 respiratory rate 16 blood pressure 161/122 oxygen saturation 97% on room air CBC and CMP ordered. blood cultures 2 ordered. Infectious disease consulted continue IV fluids at 75 mL per hour with vancomycin initiated at 2 g every 8 hours. Pharmacy to dose Review of Systems Constitutional: Denies chills, Denies fever, Denies lethargy, Denies malaise, Denies poor appetite, Denies weakness, Denies weight loss Eyes: denies decreased vision, denies diplopia, denies discharge, denies pain Ears: deny: decreased hearing Ears, nose, mouth and throat: Denies dental pain, Denies headache, Denies nasal discharge, Denies nose pain Cardiovascular: Denies chest pain, Denies decreased exercise tolerance, Denies edema, Denies high blood pressure, Denies irregular heart beat, Denies palpitations, Denies paroxysmal nocturnal dyspnea, Denies rapid heart beat, Denies shortness of breath Respiratory: Denies congestion, Denies cough, Denies cough with sputum, Denies dyspnea, Denies home oxygen, Denies wheezing Gastrointestinal: Denies abdominal pain, Denies change in bowel habits, Denies coffee ground emesis, Denies early satiety, Denies excessive gas, Denies heartburn, Denies hematemesis, Denies hematochezia, Denies loss of appetite, Denies nausea, Denies vomiting Genitourinary: Denies dysuria, Denies flank pain, Denies kidney stones, Denies menorrhagia, Denies urgency, Denies urinary frequency Musculoskeletal: Denies gait dysfunction, Denies limitation of motion, Denies morning stiffness, Denies muscle cramps Integumentary: Right breast swelling and redness, Denies wounds, Denies brittle nails, Denies change in hair/nails, Denies darkening of skin Neurological: Denies balance difficulties, Denies change in speech, Denies double vision, Denies gait dysfunction, Denies loss of vision, Denies motor disturbance, Denies numbness, Denies paralysis, Denies paresthesias, Denies seizures Psychiatric: Denies anxiety, Denies depression Endocrine: Denies excessive sweating, Denies excessive thirst, Denies high blood sugars, Denies palpitations Hematologic/Lymphatic: Denies easy bruising, Denies lymphadenopathy Past Medical History Past Medical History: Eye Disorder Additional Past Medical History / Comment(s): cataracts, spinal fluid leakage, Empty Sella Syndrome, headaches. Drained spinal fluid 1 year AGO. History of Any Multi-Drug Resistant Organisms: None Reported Past Surgical History: Adenoidectomy, Breast Surgery Additional Past Surgical History / Comment(s): right eye cataract, ear tubes x 2. Spinal fluid drained 1 YEAR AGO. Past Anesthesia/Blood Transfusion Reactions: Postoperative Nausea & Vomiting (PONV) Past Psychological History: No Psychological Hx Reported Smoking Status: Never smoker Past Alcohol Use History: None Reported Past Drug Use History: None Reported - Past Family History Mother Family Medical History: No Reported History Additional Family Medical History / Comment(s): Maternal grandmother breast cancer, maternal grandfather prostate cancer no other significant family history Medications and Allergies Home Medications Medication Instructions Recorded Confirmed Type Cephalexin [Keflex] 500 mg PO Q6HR 03/09/21 03/09/21 History HYDROcodone/APAP 5-325MG [[place] 1 tab PO Q6H PRN 03/09/21 03/09/21 History 5-325] Allergies Allergy/AdvReac Type Severity Reaction Status Date / Time No Known Allergies Allergy Verified 03/09/21 18:39 Physical Exam Vitals: Vital Signs Temp Pulse Pulse Resp BP BP Pulse Ox 03/09/21 17:35 98.4 F 94 18 134/86 96 03/09/21 15:30 98.0 F 105 H 16 161/122 97 Intake and Output 03/09/21 03/09/21 03/09/21 06:59 14:59 22:59 Other: Weight 130 kg - Constitutional General appearance: cooperative, no acute distress, obese - EENT Eyes: anicteric sclerae, PERRLA, normal appearance ENT: hearing grossly normal - Neck Neck: no lymphadenopathy, normal ROM, no other, no rigidity, no stridor, no thyromegaly - Respiratory Respiratory: bilateral: CTA, negative: diminished, dullness, rales, rhonchi - Cardiovascular Rhythm: regular Heart sounds: normal: S1, S2 Abnormal Heart Sounds: no systolic murmur, no diastolic murmur, no rub, no S3 Gallop, no S4 Gallop, no click, no other - Gastrointestinal General gastrointestinal: normal bowel sounds, soft - Integumentary Integumentary: Incision clean and dry erythema on the inferior aspect of incision output from TOSHIA drain appears serous mild erythema noted around the nipple and under the breast on the right and breast is warm to touch - Neurologic Neurologic: No gross motor deficit - Musculoskeletal Musculoskeletal: gait normal, strength equal bilaterally - Psychiatric Psychiatric: A&O x's 3, appropriate affect Results CBC & Chem 7: 03/09/21 17:55 Thrombosis Risk Factor Assmnt - DVT/VTE Prophylaxis DVT/VTE Prophylaxis: Pharmacologic Prophylaxis ordered - Choose All That Apply Each Factor Represents 1 point: Obesity (BMI >25) Other Risk Factors: Yes Each Risk Factor Represents 2 Points: Major surgery Thrombosis Risk Factor Assessment Total Risk Factor Score: 3 Thrombosis Risk Factor Assessment Level: Moderate Risk Assessment and Plan Plan: #1 right breast cellulitis post removal of mass on 02/28 with 80 reduction mammoplasty incision. TOSHIA drain in place draining serous. Vancomycin initiated. ESR CRP CBC and CMP ordered. Continue IV fluids at 75 mL per hour. Blood cultures to be obtained pain control with [place] and morphine #2 history of migraine Tylenol as needed for pain #3 pseudotumor cerebri with history of spinal fluid removal in the past. Was recommended acetazolamide on discharge but currently not on any medication #4 empty sella syndrome patient was supposed to follow with endocrinology. Currently asymptomatic #5 Cod[place] full code #6 DVT prophylaxis with heparin every 12 #7 disposition patient would need inpatient hospital stay for at least 2 days
[2021-03-09 20:09] LABS: Basophils # (A) 0.1 k/uL (0-0.2); Basophils % (A) 1 %; Eosinophils # (A) 0.4 k/uL (0-0.7); Eosinophils % (A) 3 %; HCT 37.6 % (34.0-46.0); HGB 12.7 gm/dL (11.4-16.0); Lymphocytes # (A) 3.7 k/uL (1.0-4.8); Lymphocytes % (A) 28 %; MCH 28.3 pg (25.0-35.0); MCHC 33.9 g/dL (31.0-37.0); MCV 83.5 fL (80.0-100.0); Mean Platelet Volume 7.3; Monocytes # (A) 0.9 k/uL (0-1.0); Monocytes % (A) 6 %; Neutrophils # (A) 8.1 k/uL (1.3-7.7); Neutrophils % (A) 60 %; Platelet Count 438 k/uL (150-450); RDW 13.1 % (11.5-15.5); WBC 13.5 k/uL (3.8-10.6)
[2021-03-09 20:30] LABS: ALT 32 U/L (4-34); AST 26 U/L (14-36); African American GFR (CKD) >90 (>60 ml/min/1.73 sqM); Albumin 3.7 g/dL (3.5-5.0); Alkaline Phosphatase 71 U/L (38-126); Anion Gap 7 mmol/L; Blood Urea Nitrogen 12 mg/dL (7-17); C Reactive Protein 2.3 mg/dL (<1.0); Calcium 9.1 mg/dL (8.4-10.2); Carbon Dioxide 29 mmol/L (22-30); Chloride 103 mmol/L (98-107); Glucose 121 mg/dL (74-99); Non-African American GFR(CKD) >90 (>60 ml/min/1.73 sqM); Potassium 4.7 mmol/L (3.5-5.1); Sodium 139 mmol/L (137-145); Total Bilirubin 0.1 mg/dL (0.2-1.3); Total Protein 6.5 g/dL (6.3-8.2)
[2021-03-09 21:11] LABS: Erythrocyte Sedimentation Rate 28 mm/hr (0-20)
--- NOTE | 2021-03-09 23:01 | CONS ---
CONSULTATION DATE OF SERVICE: 03/09/2021 REASON FOR CONSULTATION: Right breast cellulitis. HISTORY OF PRESENT ILLNESS: The patient is a 30-year-old female who did have a right breast lumpectomy via . Procedure was completed on 02/28/[address] Severino. The patient did have 2 TOSHIA drains and has been treated with prophylactic p.o. Keflex. The patient started having increasing swelling and redness on the right breast area Saturday night with associated swelling, redness and pain is mostly dull aching 4-5 out of 10 and no radiation. The patient did have some drainage from the medial drain and that drain has not been draining for the last day or two. With worsening swelling and redness, the patient was evaluated by her surgeon with concern for cellulitis of the breast, failing outpatient oral Keflex. She has been admitted to the hospital for IV antibiotic therapy. As per discussion with the surgeon, the patient is currently on vancomycin pending evaluation. The patient denies having any fever or any chills. Patient denies having any headache. No chest pain. No shortness of breath or cough. No abdominal pain. No diarrhea. On presentation to the hospital, the patient was afebrile. The patient did have white count of 13.5 with left shift. Sedimentation rate was 98, CRP was 2.3, creatinine was normal. Blood culture has been obtained which is currently pending. REVIEW OF SYSTEMS: Positive points have been mentioned in HPI. Rest of the systems are negative. PAST MEDICAL HISTORY: History of empty sella syndrome, headaches, breast cyst and cataract surgery. PAST SURGICAL HISTORY: Adenoidectomy, breast surgery, right eye cataract, ear tubes x2, spinal fluid drain. SOCIAL HISTORY: No history of smoking, drinking or drug use. FAMILY HISTORY: Maternal grandmother with breast cancer. ALLERGIES: No known drug allergies. MEDICATIONS: The patient is currently on Tylenol, [place], heparin, morphine sulfate, Narcan, Zofran, vancomycin, pharmacy to dose. PHYSICAL EXAMINATION: Blood pressure 130/88 with a pulse of 95, temperature 98. She is 96% on room air. GENERAL description is a middle-aged female up in the chair in no distress. No tachypnea or accessory muscles of respiration use. HEENT: Examination shows no pallor or scleral icterus. Oral mucous membrane is dry. NECK: Trachea central. No thyromegaly. LUNGS unlabored breathing. Clear to auscultation anteriorly. No wheeze or crackles. HEART: S1-S2 regular rate and rhythm. ABDOMEN: Soft, no tenderness. No guarding. No rigidity. EXTREMITIES: No edema of the feet. Examination of right breast did show some swelling and redness slightly warm to touch. There was no evidence of any induration or fluctuation. NEUROLOGICAL: Patient is awake, alert, oriented x3. Mood and affect normal. LABS: Hemoglobin is 12.7, white count 13.5, BUN of 12, creatinine 0.69. DIAGNOSTIC IMPRESSION AND PLAN: Patient with right breast cellulitis in this patient who did have a recent right breast cyst/ removal with surgeon now with one of the TOSHIA drains may be responsible for fluid collection possible secondary cellulitis and likely from a gram- positive skin caleb. In view of the patient failing oral Keflex, we need to cover for the more resistant gram-positive such as MRSA. PLAN: 1. Blood culture has been obtained. Those will be followed. 2. The area of the redness has been marked and will be followed. 3. Vancomycin, pharmacy to dose target of 15. 4. We will follow on her clinical condition and further adjust medication if needed. Thank you for this consultation. Will follow this patient along with you. Plan of care was discussed in detail with the patient as well as the surgeon at the time of evaluation. MMODL / IJN: [id number] /
[2021-03-09] MEDS: HEPARIN SODIUM,PORCINE/PF 5,000 UNIT/0.5 ML SYRINGE SQ SCH (23:37)
[2021-03-10] MEDS: VANCOMYCIN 2,000 MG in SODIUM CHLORIDE 0.9% 500 ML 500 ML IVPB SCH ×3 (03:52→20:10)
[2021-03-10 04:37] LABS: Basophils # (A) 0.1 k/uL (0-0.2); Basophils % (A) 1 %; Eosinophils # (A) 0.4 k/uL (0-0.7); Eosinophils % (A) 3 %; HCT 35.3 % (34.0-46.0); Lymphocytes # (A) 4.5 k/uL (1.0-4.8); Lymphocytes % (A) 30 %; MCH 28.2 pg (25.0-35.0); MCV 83.1 fL (80.0-100.0); Mean Platelet Volume 7.2; Monocytes # (A) 0.9 k/uL (0-1.0); Monocytes % (A) 6 %; Neutrophils # (A) 8.5 k/uL (1.3-7.7); Neutrophils % (A) 57 %; Platelet Count 426 k/uL (150-450); RBC 4.25 m/uL (3.80-5.40); RDW 13.2 % (11.5-15.5); WBC 14.8 k/uL (3.8-10.6)
[2021-03-10] MEDS: HEPARIN SODIUM,PORCINE/PF 5,000 UNIT/0.5 ML SYRINGE SQ SCH ×3 (09:26→23:49)
[2021-03-10] MEDS: DEXTROSE 5%-0.45% NACL 1,000 ML IV SCH (12:06)
--- NOTE | 2021-03-10 14:47 | PN ---
PROGRESS NOTE DATE OF SERVICE: 03/10/2021 REASON FOR FOLLOWUP: Right breast cellulitis. INTERVAL HISTORY: Patient is afebrile. The patient is breathing comfortably. Right breast pain and discomfort has decreased. Denies having any chest pain, shortness of breath, cough, no pain or diarrhea. PHYSICAL EXAMINATION: Blood pressure 120/80 with a pulse of 87, temperature 98.1. He is 97% on room air. General description is a middle-aged female lying in bed in no distress. Respiratory system: Unlabored breathing. Clear to auscultation anteriorly. Heart S1, S2. Regular rate and rhythm. Abdomen soft, no tenderness. Right breast swelling and redness has decreased and has crossed the line since yesterday. LABS: Hemoglobin is 12, white count slightly up to 14.8 today. DIAGNOSTIC IMPRESSION AND PLAN: Patient with right breast cellulitis, seemed to have decreased intensity however the white count is slightly moved up. Will need to monitor closely. Continue vancomycin and adjust antibiotic further if needed. MMODL / IJN: [id number] /
[2021-03-10] MEDS: HYDROcodone/APAP 5-325MG 1 EACH TAB PO PRN (16:30)
[2021-03-11] MEDS: VANCOMYCIN 2,000 MG in SODIUM CHLORIDE 0.9% 500 ML 500 ML IVPB SCH (04:02)
[2021-03-11 07:12] LABS: Basophils # (A) 0.1 k/uL (0-0.2); Basophils % (A) 1 %; Eosinophils # (A) 0.5 k/uL (0-0.7); Eosinophils % (A) 3 %; HGB 11.8 gm/dL (11.4-16.0); Lymphocytes % (A) 30 %; MCH 28.2 pg (25.0-35.0); MCHC 33.6 g/dL (31.0-37.0); MCV 83.9 fL (80.0-100.0); Mean Platelet Volume 7.1; Monocytes # (A) 0.8 k/uL (0-1.0); Monocytes % (A) 6 %; Neutrophils # (A) 7.6 k/uL (1.3-7.7); Neutrophils % (A) 57 %; Platelet Count 408 k/uL (150-450); RBC 4.17 m/uL (3.80-5.40); RDW 13.3 % (11.5-15.5); WBC 13.3 k/uL (3.8-10.6)
[2021-03-11 07:23] LABS: African American GFR (CKD) >90 (>60 ml/min/1.73 sqM); Anion Gap 7 mmol/L; Blood Urea Nitrogen 12 mg/dL (7-17); C Reactive Protein 2.8 mg/dL (<1.0); Calcium 8.5 mg/dL (8.4-10.2); Carbon Dioxide 24 mmol/L (22-30); Chloride 107 mmol/L (98-107); Glucose 111 mg/dL (74-99); Non-African American GFR(CKD) >90 (>60 ml/min/1.73 sqM); Potassium 4.4 mmol/L (3.5-5.1); Sodium 138 mmol/L (137-145)
[2021-03-11] MEDS: HEPARIN SODIUM,PORCINE/PF 5,000 UNIT/0.5 ML SYRINGE SQ SCH ×3 (07:56→15:11)
[2021-03-11] MEDS ORDERED: CEFEPIME 2 GM in SODIUM CHLORIDE 0.9% 100 ML IVPB SCH (09:00)
[2021-03-11] MEDS ORDERED: VANCOMYCIN TROUGH DUE 1 EACH MISC MISCELLANE ONE (11:00)
--- NOTE | 2021-03-11 11:18 | P.PN ---
Subjective Progress Note Date: 03/11/21 Principal diagnosis: Cellulitis right breast mass right breast right breast nodularity/pain Tiana is a 30 -year-old white female status post resection of mass right breast at the reduction mammoplasty incision on 7620. 2 TOSHIA drains have been left in place and postprocedure one of the drain seemed to stop working and she had increased serous drainage from that drain site. She was seen in the emergency room at that time and had no evidence of infection. She was seen in the office on 03-09-21 9 days postop and was noted to have erythema at the inferior aspect of the breast. She was therefore admitted for IV antibiotic therapy. At this time she is afebrile, she has decreased discomfort in her breasts, she has minimal TOSHIA output, and marked decreased in the erythema of the breast. Blood cultures were obtained on which were no growth. Her white blood cell count is 13.3 with 7.1% neutrophils. CRP is elevated at 2.8. Objective - Vital Signs Vital signs: Vital Signs Temp 98.6 F 03/11/21 07:58 Pulse 100 03/11/21 07:58 Resp 17 03/11/21 07:58 BP 132/84 03/11/21 07:58 Pulse Ox 97 03/11/21 07:58 Intake & Output 03/10/21 03/11/21 03/11/21 18:59 06:59 18:59 Intake Total 330 500 Output Total 10 40 Balance -10 330 460 Intake: Intake, IV Titration 500 Amount Vancomycin 2,000 mg In 500 Sodium Chloride 0.9% 500 ml 500 ml @ 167 mls/hr IVPB Q8H [facility] Rx#: [id number] Oral 330 Output: Drainage 10 20 Lateral 10 5 Medial 0 15 Other 20 Other: # Voids 2 1 - Constitutional General appearance: Present: cooperative - EENT Eyes: Present: EOMI ENT: Present: hearing grossly normal - Respiratory Respiratory: bilateral: CTA - Cardiovascular Rhythm: regular Heart sounds: normal: S1, S2 - Integumentary Integumentary Comment(s): Decreased erythema and tenderness at the inferior aspect of the right breast - Psychiatric Psychiatric: Present: A&O x's 3 - Labs CBC & Chem 7: 03/11/21 06:59 03/11/21 06:59 Labs: Abnormal Lab Results - Last 24 Hours (Table) 03/11/21 03/11/21 Range/Units 06:59 06:59 WBC 13.3 H (3.8-10.6) k/uL Glucose 111 H (74-99) mg/dL C-Reactive Protein 2.8 H (<1.0) mg/dL Microbiology - Last 24 Hours (Table) 03/09/21 19:55 Blood Culture - Preliminary Blood No Growth after 24 hours Assessment and Plan Assessment: Impression: 1. Right breast cellulitis, improved on antibiotics Plan: 1. Continue antibiotics as per infectious disease and Dr. Quiles 2. Consider DC lateral TOSHIA drain 3. Nothing which would warrant surgical intervention at this time Cc: Dr. Quiles
[2021-03-11 11:22] LABS: African American GFR (CKD) >90 (>60 ml/min/1.73 sqM); Anion Gap 5 mmol/L; Blood Urea Nitrogen 11 mg/dL (7-17); Calcium 8.9 mg/dL (8.4-10.2); Carbon Dioxide 27 mmol/L (22-30); Chloride 105 mmol/L (98-107); Glucose 141 mg/dL (74-99); Non-African American GFR(CKD) >90 (>60 ml/min/1.73 sqM); Potassium 4.3 mmol/L (3.5-5.1); Sodium 137 mmol/L (137-145)
[2021-03-11] MEDS: VANCOMYCIN 1,750 MG in SODIUM CHLORIDE 0.9% 500 ML 500 ML IVPB SCH ×2 (12:21→21:28)
--- NOTE | 2021-03-11 13:27 | P.PN ---
Subjective Progress Note Date: 03/10/21 HISTORY OF PRESENT ILLNESS 30-year-old female patient of mine with past medical history of pseud otumor cerebri, hypertension, empty sella syndrome, migraine who recently saw Dr. Radha blanco for mass in the right breast on 05/19/20. Patient underwent bilateral breast ultrasound which revealed bilateral cystic lesions. Patient underwent aspiration for the cyst on the right breast which resolved for a brief period then reoccurred. Patient underwent multiple aspirations in the cyst of the right breast and finally underwent removal of the mass on 02/28/21 the radius reduction mammoplasty incision. Patient was disheveled with [address]. Patient noted increased drainage around the drain several days ago and was seen in the ER and was diagnosed as cellulitis and was started on Keflex. Patient was seen by the surgeon today and was admitted for medical management. Vitals were reviewed patient is afebrile pulse 105 respiratory rate 16 blood pressure 161/122 oxygen saturation 97% on room air CBC and CMP ordered. blood cultures 2 ordered. Infectious disease consulted continue IV fluids at 75 mL per hour with vancomycin initiated at 2 g every 8 hours. Pharmacy to dose 03/10: Patient is scheduled to see Dr. Maycol Blanco tomorrow. She states she is feeling better. She denies having any abdominal pain or diarrhea. She is currently on [place] for pain but states pain is controlled. Patient has been afebrile, heart rate 87, blood pressure 120/80, pulse ox 97% on room air. Repeat blood work reveals WBC 14.8, hemoglobin 12.0, platelet count 426. Sed rate was 28, C-reactive protein 2.3. Patient is continued on vancomycin. REVIEW OF SYSTEMS Constitutional: Denies chills, Denies fever, Denies lethargy, Denies malaise, Denies poor appetite, Denies weakness, Denies weight loss Eyes: denies decreased vision, denies diplopia, denies discharge, denies pain Ears: deny: decreased hearing Ears, nose, mouth and throat: Denies dental pain, Denies headache, Denies nasal discharge, Denies nose pain Cardiovascular: Denies chest pain, Denies decreased exercise tolerance, Denies edema, Denies high blood pressure, Denies irregular heart beat, Denies palpitations, Denies paroxysmal nocturnal dyspnea, Denies rapid heart beat, Denies shortness of breath Respiratory: Denies congestion, Denies cough, Denies cough with sputum, Denies dyspnea, Denies home oxygen, Denies wheezing Gastrointestinal: Denies abdominal pain, Denies change in bowel habits, Denies coffee ground emesis, Denies early satiety, Denies excessive gas, Denies heartburn, Denies hematemesis, Denies hematochezia, Denies loss of appetite, Denies nausea, Denies vomiting Genitourinary: Denies dysuria, Denies flank pain, Denies kidney stones, Denies menorrhagia, Denies urgency, Denies urinary frequency Musculoskeletal: Denies gait dysfunction, Denies limitation of motion, Denies morning stiffness, Denies muscle cramps Integumentary: Right breast swelling and redness, Denies wounds, Denies brittle nails, Denies change in hair/nails, Denies darkening of skin Neurological: Denies balance difficulties, Denies change in speech, Denies double vision, Denies gait dysfunction, Denies loss of vision, Denies motor disturbance, Denies numbness, Denies paralysis, Denies paresthesias, Denies seizures Psychiatric: Denies anxiety, Denies depression Endocrine: Denies excessive sweating, Denies excessive thirst, Denies high blood sugars, Denies palpitations Hematologic/Lymphatic: Denies easy bruising, Denies lymphadenopathy PHYSICAL EXAMINATION Gen: This is a morbidly obese 30-year-old female. Patient is resting in bed and appears comfortable at rest. HEENT: Head is atraumatic, normocephalic. Pupils equal, round. Sclerae is anicteric. NECK: Supple. No JVD. No lymphadenopathy. No thyromegaly. LUNGS: Clear to auscultation. No wheezes or rhonchi. No intercostal ret ractions. HEART: Regular rate and rhythm. No murmur. BREASTS: Incision with mild erythema around the nipple and under the breast, warmth to test, TOSHIA drain [address] ABDOMEN: Soft. Bowel sounds are present. No masses. No tenderness. EXTREMITIES: No pedal edema. No calf tenderness. NEUROLOGICAL: Patient is awake, alert and oriented x3. Cranial nerves 2 through 12 are grossly intact. ASSESSMENT AND PLAN 1. Right breast cellulitis post removal of mass on 02/28 with 80 reduction mammoplasty incision. TOSHIA drain in place draining serous. Continue vancomycin. Continue IV fluids at 75 mL per hour. Blood cultures to be obtained pain control with Windsor and morphine. Consult with Dr. Maycol Blanco. 2. History of migraine Tylenol as needed for pain 3. Pseudotumor cerebri with history of spinal fluid removal in the past. Was recommended acetazolamide on discharge but currently not on any medication 4. Empty sella syndrome patient was supposed to follow with endocrinology. Currently asymptomatic 5. DVT prophylaxis with heparin every 12 Code status: Full code DISCHARGE PLAN Home. Impression and plan of care have been directed as dictated by the signing physician. Nai Saravia nurse practitioner acting as scribe for signing physician. Objective - Vital Signs Vital signs: Vital Signs Temp 98.1 F 03/10/21 08:00 Pulse 87 03/10/21 08:00 Resp 16 03/10/21 08:00 BP 120/80 03/10/21 08:00 Pulse Ox 97 03/10/21 08:00 Intake & Output 03/09/21 03/10/21 03/10/21 18:59 06:59 18:59 Output Total 20 Balance -20 Weight 130 kg Output: Drainage 20 Lateral 20 Other: Voiding Method Toilet # Voids 2 - Labs CBC & Chem 7: 03/11/21 06:59 03/11/21 10:35 Labs: Abnormal Lab Results - Last 24 Hours (Table) 03/09/21 03/09/21 03/10/21 Range/Units 19:55 19:55 04:22 WBC 13.5 H 14.8 H (3.8-10.6) k/uL Neutrophils # 8.1 H 8.5 H (1.3-7.7) k/uL ESR 28 H (0-20) mm/hr Glucose 121 H (74-99) mg/dL Total Bilirubin 0.1 L (0.2-1.3) mg/dL C-Reactive Protein 2.3 H (<1.0) mg/dL
--- NOTE | 2021-03-11 13:28 | P.PN ---
Subjective Progress Note Date: 03/11/21 HISTORY OF PRESENT ILLNESS 30-year-old female patient of mine with past medical history of pseud otumor cerebri, hypertension, empty sella syndrome, migraine who recently saw Dr. Radha blanco for mass in the right breast on 05/19/20. Patient underwent bilateral breast ultrasound which revealed bilateral cystic lesions. Patient underwent aspiration for the cyst on the right breast which resolved for a brief period then reoccurred. Patient underwent multiple aspirations in the cyst of the right breast and finally underwent removal of the mass on 02/28/21 the radius reduction mammoplasty incision. Patient was disheveled with [address]. Patient noted increased drainage around the drain several days ago and was seen in the ER and was diagnosed as cellulitis and was started on Keflex. Patient was seen by the surgeon today and was admitted for medical management. Vitals were reviewed patient is afebrile pulse 105 respiratory rate 16 blood pressure 161/122 oxygen saturation 97% on room air CBC and CMP ordered. blood cultures 2 ordered. Infectious disease consulted continue IV fluids at 75 mL per hour with vancomycin initiated at 2 g every 8 hours. Pharmacy to dose 03/10: Patient is scheduled to see Dr. Maycol Blanco tomorrow. She states she is feeling better. She denies having any abdominal pain or diarrhea. She is currently on [place] for pain but states pain is controlled. Patient has been afebrile, heart rate 87, blood pressure 120/80, pulse ox 97% on room air. Repeat blood work reveals WBC 14.8, hemoglobin 12.0, platelet count 426. Sed rate was 28, C-reactive protein 2.3. Patient is continued on vancomycin. 03/11: Patient is having drainage purulent type from the incision site under the breast, midline. Throat culture has been requested. Patient is currently on vancomycin followed by Dr. Herrera. We have added and cefepime today. Patient has been afebrile, heart rate 100, blood pressure 132/84, pulse ox 97% on room air. WBC 13.3, hemoglobin 11.8, platelet count 408. C-reactive protein 2.8. Electro lites and renal function are normal. REVIEW OF SYSTEMS Constitutional: Denies chills, Denies fever, Denies lethargy, Denies malaise, Denies poor appetite, Denies weakness, Denies weight loss Eyes: denies decreased vision, denies diplopia, denies discharge, denies pain Ears: deny: decreased hearing Ears, nose, mouth and throat: Denies dental pain, Denies headache, Denies nasal discharge, Denies nose pain Cardiovascular: Denies chest pain, Denies decreased exercise tolerance, Denies edema, Denies high blood pressure, Denies irregular heart beat, Denies palpitations, Denies paroxysmal nocturnal dyspnea, Denies rapid heart beat, Denies shortness of breath Respiratory: Denies congestion, Denies cough, Denies cough with sputum, Denies d yspnea, Denies home oxygen, Denies wheezing Gastrointestinal: Denies abdominal pain, Denies change in bowel habits, Denies coffee ground emesis, Denies early satiety, Denies excessive gas, Denies hear tburn, Denies hematemesis, Denies hematochezia, Denies loss of appetite, Denies nausea, Denies vomiting Genitourinary: Denies dysuria, Denies flank pain, Denies kidney stones, Denies menorrhagia, Denies urgency, Denies urinary frequency Musculoskeletal: Denies gait dysfunction, Denies limitation of motion, Denies morning stiffness, Denies muscle cramps Integumentary: Right breast swelling and redness, Denies wounds, Denies brittle nails, Denies change in hair/nails, Denies darkening of skin Neurological: Denies balance difficulties, Denies change in speech, Denies doub le vision, Denies gait dysfunction, Denies loss of vision, Denies motor disturbance, Denies numbness, Denies paralysis, Denies paresthesias, Denies seizures Psychiatric: Denies anxiety, Denies depression Endocrine: Denies excessive sweating, Denies excessive thirst, Denies high blood sugars, Denies palpitations Hematologic/Lymphatic: Denies easy bruising, Denies lymphadenopathy PHYSICAL EXAMINATION Gen: This is a morbidly obese 30-year-old female. Patient is resting in bed and appears comfortable at rest. HEENT: Head is atraumatic, normocephalic. Pupils equal, round. Sclerae is ani cteric. NECK: Supple. No JVD. No lymphadenopathy. No thyromegaly. LUNGS: Clear to auscultation. No wheezes or rhonchi. No intercostal retractions. HEART: Regular rate and rhythm. No murmur. BREASTS: Incision with mild erythema around the nipple and under the breast, warmth to test, TOSHIA drain [address] ABDOMEN: Soft. Bowel sounds are present. No masses. No tenderness. EXTREMITIES: No pedal edema. No calf tenderness. NEUROLOGICAL: Patient is awake, alert and oriented x3. Cranial nerves 2 through 12 are grossly intact. ASSESSMENT AND PLAN 1. Right breast cellulitis post removal of mass on 02/28 with 80 reduction mammoplasty incision. TOSHIA drain in place draining serous. Continue vancomycin and cefepime added. Continue IV fluids at 75 mL per hour. Blood cultures to be obtained pain control with [place] and morphine. Consult with Dr. Maycol Blanco. 2. History of migraine Tylenol as needed for pain 3. Pseudotumor cerebri with history of spinal fluid removal in the past. Was recommended acetazolamide on discharge but currently not on any medication 4. Empty sella syndrome patient was supposed to follow with endocrinology. Currently asymptomatic 5. DVT prophylaxis with heparin every 12 Code status: Full code DISCHARGE PLAN Home. Impression and plan of care have been directed as dictated by the signing physician. Nai Saravia nurse practitioner acting as scribe for signing physician. Objective - Vital Signs Vital signs: Vital Signs Temp 98.6 F 03/11/21 07:58 Pulse 100 03/11/21 07:58 Resp 17 03/11/21 07:58 BP 132/84 03/11/21 07:58 Pulse Ox 97 03/11/21 07:58 Intake & Output 03/10/21 03/11/21 03/11/21 18:59 06:59 18:59 Intake Total 330 Output Total 10 Balance -10 330 Intake: Oral 330 Output: Drainage 10 Lateral 10 Medial 0 Other: # Voids 2 1 - Labs CBC & Chem 7: 03/11/21 06:59 03/11/21 10:35 Labs: Abnormal Lab Results - Last 24 Hours (Table) 03/11/21 03/11/21 Range/Units 06:59 06:59 WBC 13.3 H (3.8-10.6) k/uL Glucose 111 H (74-99) mg/dL C-Reactive Protein 2.8 H (<1.0) mg/dL Microbiology - Last 24 Hours (Table) 03/09/21 19:55 Blood Culture - Preliminary Blood No Growth after 24 hours
[2021-03-11] MEDS: DEXTROSE 5%-0.45% NACL 1,000 ML IV SCH (16:44)
[2021-03-11] MEDS: CEFEPIME 2 GM in SODIUM CHLORIDE 0.9% 100 ML IVPB SCH (17:19)
--- NOTE | 2021-03-11 18:09 | PN ---
PROGRESS NOTE DATE OF SERVICE: 03/11/2021 REASON FOR FOLLOWUP: Right breast cellulitis. INTERVAL HISTORY: The patient is afebrile. The patient is breathing comfortably. Right breast swelling and redness has decreased. Her white count is still elevated. Cefepime was added by admitting team this morning. The patient denies any chest pain, shortness of breath or cough. PHYSICAL EXAMINATION: Her blood pressure 126/81 with a pulse of 99, temperature 98.4. She is 97% on room air. General description is a middle-aged female lying in bed in no distress. Respiratory system: Unlabored breathing, clear to auscultation anteriorly. Heart S1, S2. Regular rate and rhythm. Abdomen is soft, no tenderness. Right breast swelling and redness has decreased in intensity. LABS: White count 13.3, creatinine 0.68. DIAGNOSTIC IMPRESSION AND PLAN: Patient with right breast cellulitis. The patient did have cultures obtained this morning. Cefepime has been added. Dose should be adjusted to every 8 hours. Continue vancomycin and adjust antibiotics further based on the culture report. Continue supportive care. MMODL / IJN: [id number] /
[2021-03-12] MEDS: CEFEPIME 2 GM in SODIUM CHLORIDE 0.9% 100 ML IVPB SCH ×4 (00:28→23:10)
[2021-03-12] MEDS: HEPARIN SODIUM,PORCINE/PF 5,000 UNIT/0.5 ML SYRINGE SQ SCH ×4 (00:29→23:11)
[2021-03-12] MEDS: VANCOMYCIN 1,750 MG in SODIUM CHLORIDE 0.9% 500 ML 500 ML IVPB SCH ×3 (04:38→20:04)
--- NOTE | 2021-03-12 09:32 | P.PN ---
Subjective Progress Note Date: 03/12/21 Principal diagnosis: Cellulitis right breast Tiana is a 30 -year-old white female status post resection of mass right breast via a reduction mammoplasty incision on 7620. 2 TOSHIA drains have been left in place and postprocedure one of the drain seemed to stop working and she had increased serous drainage from that drain site. She was seen in the emergency room at that time and had no evidence of infection. She was seen in the office on 03-09-21, 9 days postop and was noted to have erythema at the inferior aspect of the breast. She was therefore admitted for IV antibiotic therapy. At this time she is afebrile, she has decreased discomfort in her breasts, she has minimal TOSHIA output, and marked decreased in the erythema of the breast. Blood cultures were obtained on which were no growth. She is presently on vancomycin and cefepime. Gram stain from revealed few PMNs, rare epithelial cells, few gram-negative bacilli. Lateral TOSHIA drain 18 cc serous Medial drain 10 mL serous She states she is not draining around the drains at this time. Objective - Vital Signs Vital signs: Vital Signs Temp 98.1 F 03/12/21 08:00 Pulse 88 03/12/21 08:00 Resp 18 03/12/21 08:00 BP 136/81 03/12/21 08:00 Pulse Ox 96 03/12/21 08:00 Intake & Output 03/11/21 03/12/21 03/12/21 18:59 06:59 18:59 Intake Total 1200 1100 300 Output Total 40 20 28 Balance 1160 1080 272 Intake: Intake, IV Titration 1200 1100 Amount Cefepime 2 gm In Sodium 100 Chloride 0.9% 100 ml @ 25 mls/hr IVPB Q12HR LUIS E Rx #:[id number] Cefepime 2 gm In Sodium 100 100 Chloride 0.9% 100 ml @ 25 mls/hr IVPB Q8HR [facility] E Rx# :[id number] Vancomycin 1,750 mg In 500 Sodium Chloride 0.9% 500 ml 500 ml @ 167 mls/hr IVPB Q8H [facility] E Rx#: [id number] Vancomycin 2,000 mg In 500 1000 Sodium Chloride 0.9% 500 ml 500 ml @ 167 mls/hr IVPB Q8H [facility]IS E Rx#: [id number] Oral 300 Output: Drainage 20 20 28 Lateral 5 20 18 Medial 15 10 Other 20 Other: Voiding Method Toilet # Voids 4 - Exam BMI 48.1 - Constitutional General appearance: Present: cooperative - EENT Eyes: Present: EOMI ENT: Present: hearing grossly normal - Neck Neck: Present: normal ROM - Respiratory Respiratory: bilateral: CTA - Cardiovascular Heart sounds: normal: S1, S2 - Integumentary Integumentary Comment(s): Decreased erythema inferior aspect of the breast - Psychiatric Psychiatric: Present: A&O x's 3, appropriate affect, intact judgment & insight - Labs CBC & Chem 7: 03/11/21 06:59 03/11/21 10:35 Labs: Abnormal Lab Results - Last 24 Hours (Table) 03/11/21 Range/Units 10:35 Glucose 141 H (74-99) mg/dL Microbiology - Last 24 Hours (Table) 03/11/21 09:25 Gram Stain - Preliminary Breast - Right Wound Culture - Preliminary 03/09/21 19:55 Blood Culture - Preliminary Blood No Growth after 48 hours Assessment and Plan Assessment: Impression: 1. Right breast cellulitis, improved on antibiotics Plan: 1. Continue antibiotics as per infectious disease and Dr. Quiles 2. will keep TOSHIA drains at this time 3. Nothing which would warrant surgical intervention at this time 4. Probable discharge home tomorrow Cc: Dr. Quiles
--- NOTE | 2021-03-12 10:35 | P.PN ---
Subjective Progress Note Date: 03/12/21 HISTORY OF PRESENT ILLNESS 30-year-old female patient of mine with past medical history of pseud otumor cerebri, hypertension, empty sella syndrome, migraine who recently saw Dr. Radha blanco for mass in the right breast on 05/19/20. Patient underwent bilateral breast ultrasound which revealed bilateral cystic lesions. Patient underwent aspiration for the cyst on the right breast which resolved for a brief period then reoccurred. Patient underwent multiple aspirations in the cyst of the right breast and finally underwent removal of the mass on 02/28/21 the radius reduction mammoplasty incision. Patient was disheveled with [address]. Patient noted increased drainage around the drain several days ago and was seen in the ER and was diagnosed as cellulitis and was started on Keflex. Patient was seen by the surgeon today and was admitted for medical management. Vitals were reviewed patient is afebrile pulse 105 respiratory rate 16 blood pressure 161/122 oxygen saturation 97% on room air CBC and CMP ordered. blood cultures 2 ordered. Infectious disease consulted continue IV fluids at 75 mL per hour with vancomycin initiated at 2 g every 8 hours. Pharmacy to dose 03/10: Patient is scheduled to see Dr. Maycol Blanco tomorrow. She states she is feeling better. She denies having any abdominal pain or diarrhea. She is currently on [place] for pain but states pain is controlled. Patient has been afebrile, heart rate 87, blood pressure 120/80, pulse ox 97% on room air. Repeat blood work reveals WBC 14.8, hemoglobin 12.0, platelet count 426. Sed rate was 28, C-reactive protein 2.3. Patient is continued on vancomycin. 03/11: Patient is having drainage purulent type from the incision site under the breast, midline. Throat culture has been requested. Patient is currently on vancomycin followed by Dr. Herrera. We have added and cefepime today. Patient has been afebrile, heart rate 100, blood pressure 132/84, pulse ox 97% on room air. WBC 13.3, hemoglobin 11.8, platelet count 408. C-reactive protein 2.8. Electro lites and renal function are normal. 03/12: Patient has been seen by Dr. Maycol Blanco and plan is to keep TOSHIA drains at this time. No plan for any surgical intervention. We are waiting for cultures which are in process/preliminary. Patient is continued on cefepime and vancomycin. IV fluids will be discontinued. She has been afebrile, heart rate 88, blood pressure 136/81, pulse ox 96% on room air. Repeat CBC ordered for tomorrow. She continues to be Followed by Dr. Herrera. She only required 2 [place] and Tylenol yesterday for pain control. Anticipate discharge home tomorrow. REVIEW OF SYSTEMS Constitutional: Denies chills, Denies fever, Denies lethargy, Denies malaise, Denies poor appetite, Denies weakness, Denies weight loss Eyes: denies decreased vision, denies diplopia, denies discharge, denies pain Ears, nose, mouth and throat: Denies dental pain, Denies headache, Denies nasal discharge, Denies nose pain Cardiovascular: Denies chest pain, Denies decreased exercise tolerance, Denies edema, Denies high blood pressure, Denies irregular heart beat, Denies palpitations, Denies paroxysmal nocturnal dyspnea, Denies rapid heart beat, Denies shortness of breath Respiratory: Denies congestion, Denies cough, Denies cough with sputum, Denies dyspnea, Denies home oxygen, Denies wheezing Gastrointestinal: Denies abdominal pain, Denies change in bowel habits, Denies coffee ground emesis, Denies early satiety, Denies excessive gas, Denies heartburn, Denies hematemesis, Denies hematochezia, Denies loss of appetite, Denies nausea, Denies vomiting Genitourinary: Denies dysuria, Denies flank pain, Denies kidney stones, Denies m enorrhagia, Denies urgency, Denies urinary frequency Musculoskeletal: Denies gait dysfunction, Denies limitation of motion, Denies morning stiffness, Denies muscle cramps Integumentary: Right breast swelling and redness-improving, Denies wounds, Denies brittle nails, Denies change in hair/nails, Denies darkening of skin Neurological: Denies balance difficulties, Denies change in speech, Denies double vision, Denies gait dysfunction, Denies loss of vision, Denies motor di sturbance, Denies numbness, Denies paralysis, Denies paresthesias, Denies seizures Psychiatric: Denies anxiety, Denies depression Endocrine: Denies excessive sweating, Denies excessive thirst, Denies high blood sugars, Denies palpitations Hematologic/Lymphatic: Denies easy bruising, Denies lymphadenopathy PHYSICAL EXAMINATION Gen: This is a morbidly obese 30-year-old female. Patient is resting in bed and appears comfortable at rest. HEENT: Head is atraumatic, normocephalic. Pupils equal, round. Sclerae is anicteric. NECK: Supple. No JVD. No lymphadenopathy. No thyromegaly. LUNGS: Clear to auscultation. No wheezes or rhonchi. No intercostal retractions. HEART: Regular rate and rhythm. No murmur. BREASTS: Incision with mild erythema around the nipple and under the breast, war mth to test, TOSHIA drain [address] ABDOMEN: Soft. Bowel sounds are present. No masses. No tenderness. EXTREMITIES: No pedal edema. No calf tenderness. NEUROLOGICAL: Patient is awake, alert and oriented x3. Cranial nerves 2 through 12 are grossly intact. ASSESSMENT AND PLAN 1. Right breast cellulitis post removal of mass on 02/28 with 80 reduction mammoplasty incision. TOSHIA drain in place draining serous. Continue vancomycin and cefepime. Discontinue IV fluids. Blood cultures to be obtained pain control with [place] and morphine. Consult with Dr. Maycol Blanco. 2. History of migraine Tylenol as needed for pain 3. Pseudotumor cerebri with history of spinal fluid removal in the past. Was recommended acetazolamide on discharge but currently not on any medication 4. Empty sella syndrome patient was supposed to follow with endocrinology. Currently asymptomatic 5. DVT prophylaxis with heparin every 12 Code status: Full code DISCHARGE PLAN Home on Saturday. Impression and plan of care have been directed as dictated by the signing physician. Nai Saravia nurse practitioner acting as scribe for signing physician. Objective - Vital Signs Vital signs: Vital Signs Temp 98.4 F 03/12/21 01:55 Pulse 89 03/12/21 01:55 Resp 18 03/12/21 01:55 BP 156/95 03/12/21 01:55 Pulse Ox 97 03/12/21 01:55 Intake & Output 03/11/21 03/12/21 03/12/21 18:59 06:59 18:59 Intake Total 1200 1100 Output Total 40 20 Balance 1160 1080 Intake: Intake, IV Titration 1200 1100 Amount Cefepime 2 gm In Sodium 100 Chloride 0.9% 100 ml @ 25 mls/hr IVPB Q12HR [facility] Rx #:[id number] Cefepime 2 gm In Sodium 100 100 Chloride 0.9% 100 ml @ 25 mls/hr IVPB Q8HR [facility] Rx# :[id number] Vancomycin 1,750 mg In 500 Sodium Chloride 0.9% 500 ml 500 ml @ 167 mls/hr IVPB Q8H [facility] Rx#: [id number] Vancomycin 2,000 mg In 500 1000 Sodium Chloride 0.9% 500 ml 500 ml @ 167 mls/hr IVPB Q8H [facility] Rx#: [id number] Output: Drainage 20 20 Lateral 5 20 Medial 15 Other 20 Other: # Voids 4 - Labs CBC & Chem 7: 03/11/21 06:59 03/11/21 10:35 Labs: Abnormal Lab Results - Last 24 Hours (Table) 03/11/21 Range/Units 10:35 Glucose 141 H (74-99) mg/dL Microbiology - Last 24 Hours (Table) 03/11/21 09:25 Gram Stain - Preliminary Breast - Right Wound Culture - Preliminary 03/09/21 19:55 Blood Culture - Preliminary Blood No Growth after 48 hours
--- NOTE | 2021-03-12 15:12 | PN ---
PROGRESS NOTE DATE OF SERVICE: 03/12/2021 REASON FOR FOLLOWUP: Right breast cellulitis. INTERVAL HISTORY: Patient is afebrile. The patient is breathing comfortably. Overall pain and discomfort to the right breast has decreased. No chest pain, shortness of breath or cough. No abdominal pain. No diarrhea. PHYSICAL EXAMINATION: Blood pressure 136/81, pulse of 80, temperature 98.1, she is 96% on room air. General description is a middle-aged female lying in bed in no distress. Respiratory system: Unlabored breathing, clear to auscultation anteriorly. Heart S1, S2. Regular rate and rhythm. Abdomen is soft, no tenderness. Right breast swelling and redness has slightly decreased. LABS: BUN of 11, creatinine 0.68. Cultures obtained yesterday so far are negative. DIAGNOSTIC IMPRESSION AND PLAN: Patient with right breast cellulitis with local culture showing a Gram-negative. Patient to continue with cefepime while waiting for the culture to finalize to determine her discharge antibiotics. Continue supportive care. MMODL / IJN: [id number] /
[2021-03-13] MEDS: VANCOMYCIN 1,750 MG in SODIUM CHLORIDE 0.9% 500 ML 500 ML IVPB SCH ×2 (03:14→12:04)
[2021-03-13 03:17] VITALS: TEMP 98.2
[2021-03-13 06:45] LABS: HCT 34.4 % (34.0-46.0); HGB 11.6 gm/dL (11.4-16.0); MCH 27.8 pg (25.0-35.0); MCHC 33.6 g/dL (31.0-37.0); MCV 82.9 fL (80.0-100.0); Mean Platelet Volume 7.3; Platelet Count 406 k/uL (150-450); RBC 4.15 m/uL (3.80-5.40); WBC 14.5 k/uL (3.8-10.6)
[2021-03-13] MEDS: HEPARIN SODIUM,PORCINE/PF 5,000 UNIT/0.5 ML SYRINGE SQ SCH (08:05)
[2021-03-13] MEDS: CEFEPIME 2 GM in SODIUM CHLORIDE 0.9% 100 ML IVPB SCH (08:11)
[2021-03-13 08:51] VITALS: BP 125/85; PULSE 88; RESP 18
--- NOTE | 2021-03-13 11:23 | USB ---
EXAMINATION TYPE: US breast complete RT DATE OF EXAM: 03/13/2021 COMPARISON: 12/08/2020 CLINICAL HISTORY: r/o abcess. Findings: The right breast was scanned with ultrasound in all 4 quadrants and in the retroareolar region. There is marked heterogeneity throughout the right breast throughout with skin thickening, consistent with known infection. In the right breast at 5:00, there is a 1.9 x 0.6 x 1.7 cm collection which ma y represent phlegmon versus abscess versus seroma and clinical follow-up is recommended. In the right breast at 2:00, there is a 1.0 x 0.7 x 1.1 cm area of heterogeneity which was previously measured at 1:00. There is a new vague hypoechoic area within the right breast at 11:00 measuring 1.2 x 1.0 x 1.1 cm. T his area is indeterminant and may represent a focal lesion versus lymph node versus abscess/phlegmon. IMPRESSION: Areas of possible phlegmon/abscess with right surrounding mastitis. Clinical follow-up is recommended for known infection. BI-RADS 3, probably benign. Right breast ultrasound is recommended in 6-8 weeks.
--- NOTE | 2021-03-13 13:04 | PN ---
PROGRESS NOTE DATE OF SERVICE: 03/13/2021 REASON FOR FOLLOWUP: Right breast cellulitis. INTERVAL HISTORY: The patient is afebrile. The patient is breathing comfortably. Patient denies any chest pain, shortness of breath or cough. No abdominal pain or diarrhea. PHYSICAL EXAMINATION: Blood pressure 125/85, pulse 88, temperature 98.5. She is 93% on room air. General description is an elderly female lying in bed in no distress. Respiratory system: Unlabored breathing, clear to auscultation anteriorly. Heart S1, S2. Regular rate and rhythm. Abdomen soft, no tenderness. Right breast redness has slightly increased. LABS: Hemoglobin is 11.4, white count 14.5. DIAGNOSTIC IMPRESSION AND PLAN: Patient with right breast cellulitis now with worsening of the white count, redness. Ultrasound any abscess that may need to be drained. Continue cefepime and vancomycin on discharge today. MMODL / IJN: [id number] /
--- NOTE | 2021-03-13 13:43 | P.DS ---
Providers Date of admission: 03/10/21 23:13 Expected date of discharge: 03/13/21 Attending physician: Gertrude Quiles MD Consults: 03/09/21 16:29 Consult Physician Routine Consulting Provider: Malgorzata Herrera Consult Reason/Comments: cellulitis of breast Do you want consulting provider notified?: Yes 03/09/21 17:32 Consult Physician Routine Consulting Provider: Enma Perez Consult Reason/Comments: right breast cellulitis Do you want consulting provider notified?: Already Contacted Primary care physician: Gertrude uQiles MD Hospital Course: HISTORY OF PRESENT ILLNESS 30-year-old female patient of mine with past medical history of pseudotumor cerebri, hypertension, empty sella syndrome, migraine who recently saw Dr. Radha blanco for mass in the right breast on 05/19/20. Patient underwent bilateral breast ultrasound which revealed bilateral cystic lesions. Patient underwent aspiration for the cyst on the right breast which resolved for a brief period then reoccurred. Patient underwent multiple aspirations in the cyst of the right breast and finally underwent removal of the mass on 02/28/21 the radius reduction mammoplasty incision. Patient was disheveled with [address]. Patient noted increased drainage around the drain several days ago and was seen in the ER and was diagnosed as cellulitis and was started on Keflex. Patient was seen by the surgeon today and was admitted for medical management. Vitals were reviewed patient is afebrile pulse 105 respiratory rate 16 blood pressure 161/122 oxygen saturation 97% on room air CBC and CMP ordered. blood cultures 2 ordered. Infectious disease consulted continue IV fluids at 75 mL per hour with vancomycin initiated at 2 g every 8 hours. Pharmacy to dose 03/10: Patient is scheduled to see Dr. Maycol Blanco tomorrow. She states she is feeling better. She denies having any abdominal pain or diarrhea. She is currently on [place] for pain but states pain is controlled. Patient has been afebrile, heart rate 87, blood pressure 120/80, pulse ox 97% on room air. Repeat blood work reveals WBC 14.8, hemoglobin 12.0, platelet count 426. Sed rate was 28, C-reactive protein 2.3. Patient is continued on vancomycin. 03/11: Patient is having drainage purulent type from the incision site under the breast, midline. Throat culture has been requested. Patient is currently on vancomycin followed by Dr. Herrera. We have added and cefepime today. Patient has been afebrile, heart rate 100, blood pressure 132/84, pulse ox 97% on room air. WBC 13.3, hemoglobin 11.8, platelet count 408. C-reactive protein 2.8. Electro lites and renal function are normal. 03/12: Patient has been seen by Dr. Maycol Blanco and plan is to keep TOSHIA drains at this time. No plan for any surgical intervention. We are waiting for cultures which are in process/preliminary. Patient is continued on cefepime and vancomycin. IV fluids will be discontinued. She has been afebrile, heart rate 88, blood pressure 136/81, pulse ox 96% on room air. Repeat CBC ordered for tomorrow. She continues to be Followed by Dr. Herrera. She only required 2 [place] and Tylenol yesterday for pain control. Anticipate discharge home tomorrow. 03/13: She has been afebrile, heart rate 88, blood pressure 125/85, pulse ox 96% on room air. Repeat CBC reveals WBC of 14.5, hemoglobin 0.6 and platelet count of 406. Wound culture is showing no predominant morphotype. Patient has been continued on vancomycin and cefepime and followed by Dr. Herrera. He has recommended doxycycline and ciprofloxacin for discharge. Ultrasound reveals areas of possible phlegmon/abscess with surrounding mastitis. Dr. Maycol Blanco has cleared the patient for discharge with planned follow-up with her on Saturday of this week. Patient will be discharged home today in stable condition. DISCHARGE DIAGNOSES 1. Right breast cellulitis post removal of mass on 02/28. Pathology was negative for malignancy. 2. History of migraine 3. Pseudotumor cerebri with history of spinal fluid removal in the past. 4. Empty sella syndrome DISCHARGE PLAN Home Impression and plan of care have been directed as dictated by the signing physician. Nai Saravia nurse practitioner acting as scribe for signing physician. Patient Condition at Discharge: Good Plan - Discharge Summary Discharge Rx Participant: Yes New Discharge Prescriptions: New Doxycycline Hyclate 100 mg PO BID 10 Days #20 tab Ciprofloxacin HCl [Cipro] 750 mg PO BID 10 Days #20 tab Continue HYDROcodone/APAP 5-325MG [[place] 5-325] 1 tab PO Q6H PRN PRN Reason: Pain Discontinued Cephalexin [Keflex] 500 mg PO Q6HR Discharge Medication List HYDROcodone/APAP 5-325MG [[place] 5-325] 1 tab PO Q6H PRN 03/09/21 [History] Ciprofloxacin HCl [Cipro] 750 mg PO BID 10 Days #20 tab 03/13/21 [Rx] Doxycycline Hyclate 100 mg PO BID 10 Days #20 tab 03/13/21 [Rx] Follow up Appointment(s)/Referral(s): Enma Perez MD [STAFF PHYSICIAN] - (03-15-2021 AT 4:20PM) Gertrude Quiles MD [Primary Care Provider] - 1 Week Activity/Diet/Wound Care/Special Instructions: FOLLOW UP WITH DR CONTRERAS ON CALL HER SOONER FOR ANY PROBLEMS OR CONCERN S...IE FEVER, INCREASED PAIN, REDNESS, OR WORSENING SYMPTOMS. NO LIFTING OR STRENUOUS ACTIVITY. DRAINS TO REMAIN IN PLACE. DR CONTRERAS'S CELL PHONE NUMBER [phone] Discharge Disposition: HOME SELF-CARE
[2021-03-13] MEDS ORDERED: VANCOMYCIN TROUGH DUE 1 EACH MISC MISCELLANE ONE (19:00)
--- NOTE | 2021-03-14 16:49 | CDI ---
Documentation Clarification Form Date: 03/14/2021 04:40:38 PM From: Balaji Pisano Admit Date: 03/10/2021 11:13:00 PM Patient Name: Tiana Cheung Visit Number: [id number] Discharge Date: 03/13/2021 03:23:00 PM ATTENTION: The Clinical Documentation Specialists (CDI) and [facility] Coding Staff appreciate your assistance in clarifying documentation. Please respond to the clarification below the line at the bottom and electronically sign. The CDI & [facility] Coding staff will review the response and follow-up if needed. Please note: Queries are made part of the Legal Health Record. If you have any questions, please contact the author of this message via ITS. Dr. Gertrude Quiles R breast cellulitis is documented in the discharge summary and patient had removal of breast cyst 02/28/21. Additional clarification is requested regarding the relationship, if any, that exists between the diagnosis and the procedure. Patients Admitting Diagnosis: R breast cellulitis Post-Operative Diagnosis: R breast celllulitis Procedure performed: Removal of R breast cyst 02/28 prior to admission History/Risk Factors: prior surgery 02/28 Clinical Indicators: increased drainage at operative wound site Treatment: Abx What relationship, if any, exists between the diagnosis of R breast cellulitis and the procedure: [ x] Cellulitis is a complication of surgical procedure [ ] Cellulitis is an expected outcome of the surgical procedure [ ] Other please specify ____ [ ] Unable to determine MTDD
== END 2021-03-13 15:23 | disposition home or self-care (01) | DRG 863 ==
LOC: WWCWWP 15:24 → 6PED 17:00 → OBSVTOIN 03-10 23:13
PROVIDERS: ADMIT Internal Medicine; ATTEND Internal Medicine
DX: T81.40XA Infection following a procedure, unspecified, initial encounter (principal); N61.0 Mastitis without abscess; Y83.9 Surgical procedure, unspecified as the cause of abnormal reaction of the patient, or of later complication, without mention of misadventure at the time of the procedure; Z80.3 Family history of malignant neoplasm of breast; Z80.42 Family history of malignant neoplasm of prostate; G43.909 Migraine, unspecified, not intractable, without status migrainosus; G93.2 Benign intracranial hypertension; I10 Essential (primary) hypertension; Z80.0 Family history of malignant neoplasm of digestive organs; E23.6 Other disorders of pituitary gland
CPT/HCPCS: 80048; 80053; 80202; 82565; 85025; 85027; 85652; 86140; 87040; 87070; 87205

== ENCOUNTER → 2021-03-15 | Outpatient (CLI) | payer OTHER ==
[2021-03-15 16:42] VITALS: BP 142/92; PULSE 105; RESP 18; TEMP 98.4
--- NOTE | 2021-03-15 17:09 | P.PN ---
Progress Note - Text Progress Note Date: 03/15/21 Tiana is a 30-year-old white female status post right breast reduction mammoplasty and removal of the mass which was scar/fat necrosis with chronic inflammation. She postprocedure developed a cellulitis of the right breast [place] [address] was admitted for IV antibiotic therapy. She stayed in the hospital for 5 days 4 nights. She has been subsequently discharged home with marked decreased erythema of the breast. At this time she is on oral antibiotics as per infectious disease. This is doxycycline and ciprofloxacin. History of [address] with minimal drainage output. The drainage is serous in nature. Not had any fever or chills. She is compl aining of drainage from the T[place] sites. The erythema that was present in the right breast is markedly decreased. Physical examination: Lungs: Clear Heart: Regular rate and rhythm Incisions: Minimal exudate inferior vertical incision area trifurcation, as well as on the medial longitudinal incision Sutures ready for removal TOSHIA drains minimal output serous in nature ready to be removed Impression: 1. Patient doing well status post right breast lumpectomy via reduction mammoplasty incision 2. Resolving cellulitis 3. Ultrasound was reviewed with radiology at this time nothing to drain Plan: 1. Suture removal 2. Continue antibiotics 3. Remove T[place] drains 4. Follow up next week to evaluate incisions 5. If any questions or concerns patient will return sooner CC: Dr. Quiles
== END ==
LOC: WWCWWP 16:23
PROVIDERS: ATTEND Surgery
DX: Z09 Encounter for follow-up examination after completed treatment for conditions other than malignant neoplasm (principal); L03.90 Cellulitis, unspecified; Z98.890 Other specified postprocedural states

== ENCOUNTER → 2021-03-24 | Outpatient (CLI) | payer OTHER ==
[2021-03-24 14:28] VITALS: BP 139/89; PULSE 84; RESP 18; TEMP 97.8
--- NOTE | 2021-03-24 15:07 | P.PN ---
Subjective Progress Note Date: 03/24/21 Principal diagnosis: Asymmetry of the breast asymmetry of the breast Tiana is a 31 year old white female who underwent a right breast mass removal. A reduction mammoplasty incision. Pathology revealed scar/fat necrosis and chronic inflammation. She had the procedure performed on 7620. [place] [address] was noted to have cellulitis of the inferior medial aspect of the breast was admitted for IV antibiotic therapy. She was in the hospital for 5 days and 4 nights. She was subsequently discharged on doxycycline and ciprofloxacin. At this time the patient has resolution of the erythema. She has not had any fever or chills. She is f eeling well. Her case was reviewed with Dr. Javier baez from infectious disease and he feels that she is ready for the contralateral reduction mammoplasty. She is going to have preoperative vancomycin and cefepime. She will be discharged home on doxycycline and ciprofloxacin. She has marked asymmetry of the breast. This makes it difficult for her to find close the fascia well. And causes psychologic anxiety. The patient's last bilateral mammogram was on 1520 ultrasound of both breasts were recommended at that time the lesion was noted in the right breast which has subsequently been removed. The ultrasound of the left breast performed on revealed a 0.6 x 0.8 mixed lesion at 10:00 and follow-up mammogram of both breasts in 6 months had been recommended. 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; she was going to have a shunt placed but at this time is having spinal taps Social history: Nicotine: Negative Alcohol: less than Monthly Drugs: Marijuana occasionally - Constitutional Constitutional: Denies chills, Denies fever - EENT Comment: cataract surgery/linked to brain problems Ears: deny: decreased hearing, tinnitus Ears, nose, mouth and throat: Reports headache - Breasts Breasts: bilateral: as per HPI - Cardiovascular Cardiovascular: Denies chest pain, Denies shortness of breath - Respiratory Respiratory: Denies cough - Gastrointestinal Gastrointestinal: Denies abdominal pain, Denies diarrhea, Denies nausea, Denies vomiting - Genitourinary (Female) Genitourinary: Denies dysuria, Denies hematuria - Menstruation Menstruation: Reports period normal - Musculoskeletal Musculoskeletal: Denies myalgias - Integumentary Integumentary: Denies pruritus, Denies rash - Neurological Neurological: Denies numbness, Denies weakness - Psychiatric Psychiatric: Denies anxiety, Denies depression - Endocrine Endocrine: Denies fatigue, Denies weight change - Hematologic/Lymphatic Comment: none - Allergic/Immunologic Allergic/Immunologic: Reports as per HPI Objective - Vital Signs Vital signs: Vital Signs Temp 97.8 F 03/24/21 14:26 Pulse 84 03/24/21 14:26 Resp 18 03/24/21 14:26 BP 139/89 03/24/21 14:26 Pulse Ox 98 03/24/21 14:26 Intake & Output 03/23/21 03/24/21 03/24/21 18:59 06:59 18:59 Weight 127.006 kg - Constitutional Constitutional Comment(s): BMI 48.1 General appearance: Present: cooperative - EENT Eyes: Present: EOMI ENT: Present: hearing grossly normal - Neck Neck: Present: normal ROM - Respiratory Respiratory: bilateral: CTA - Cardiovascular Heart sounds: normal: S1, S2 - Gastrointestinal General gastrointestinal: Present: soft - Integumentary Integumentary: Present: normal turgor - Musculoskeletal Musculoskeletal: Present: gait normal - Psychiatric Psychiatric: Present: A&O x's 3, appropriate affect, intact judgment & insight - Additional findings Additional findings: Breast Exam: Block: 46 DDD/asymmetry of the breast related to right breast surgery Inspection: Ptosis grade 2/1 on the right, grade 3 on the left Palpation: Right breast: Incisions clean and dry well-healed no evidence of infection at this time Right axilla no adenopathy of concern Left breast: Multiple positional exam fibrocystic changes no dominant masses or nodules of concern Left axilla: No adenopathy of concern Asymmetry of the breast Assessment and Plan Assessment: Impression: 1. Asymmetry of the breast Plan: 1. Left breast mammoplasty 2. Patient's case has been discussed and cleared with infectious disease doctor site he 3. Preoperative vancomycin and cefepime 4. Patient will be discharged home on doxycycline and ciprofloxacin CC: Dr. Quiles
== END ==
LOC: WWCWWP 14:19
PROVIDERS: ATTEND Surgery
DX: N64.89 Other specified disorders of breast (principal); Z88.1 Allergy status to other antibiotic agents

== ENCOUNTER 2021-03-28 07:19 | Day surgery (SDC) | payer OTHER ==
[2021-03-24 11:39] VITALS: BMI 48.0
[~2021-03-28 07:19] MED LIST changes: +DEXAMETHASONE SOD PHOSPHATE 4 MG/ML 1 ML VIAL IV ONE; +HYDROmorphone 0.5 MG/0.5 ML SYRINGE IVP PRN; +LACTATED RINGERS 1,000 ML IV SCH; +LIDOCAINE 1% (10MG/ML) FOR IV START INTRADERMA PRN; +MIDAZOLAM 2 MG/2 ML VIAL IV PRN; +Pre Op ABX Message 1 EACH MISC MISCELLANE ONE; +VANCOMYCIN 2,000 MG in SODIUM CHLORIDE 0.9% 500 ML 500 ML IVPB ONE; +VANCOMYCIN IV PER PHARMACY 1 EACH MISC MISCELLANE ONE; -ceFAZolin 3 GM in SODIUM CHLORIDE 0.9% 100 ML IVPB PRN
[2021-03-28] MEDS: ONDANSETRON 4 MG/2 ML VIAL IVP ONE ×2 (08:22→12:29)
[2021-03-28] MEDS ORDERED: SCOPOLAMINE 1.5MG/72HR PATCH TRANSDERM ONE (08:23)
[2021-03-28] MEDS ORDERED: HYDROmorphone (PF) 1 MG/ML ONE (08:45)
[2021-03-28] MEDS ORDERED: KETOROLAC 15 MG/ML 1 ML VIAL ONE (08:45)
[2021-03-28] MEDS ORDERED: fentaNYL (PF) 50 MCG/ML 2 ML AMP ONE (08:45)
[2021-03-28] MEDS ORDERED: SUCCINYLCHOLINE CHLORIDE 100 MG/5 ML SYR IV ONE (08:45)
[2021-03-28] MEDS ORDERED: LIDOCAINE 1% INJ 10MG/ML (20 ML MDV) ONE (08:45)
[2021-03-28] MEDS ORDERED: MIDAZOLAM 2 MG/2 ML VIAL ONE (08:45)
[2021-03-28] MEDS ORDERED: PROPOFOL 10 MG/ML 20 ML VIAL IV ONE (08:45)
[2021-03-28] MEDS: CEFEPIME 2 GM in SODIUM CHLORIDE 0.9% 100 ML IVPB STA ×2 (09:28→11:01)
[2021-03-28] MEDS ORDERED: LACTATED RINGERS 1,000 ML IV ONE (10:03)
--- NOTE | 2021-03-28 11:43 | P.OP ---
Date of Procedure: 03/28/21 Preoperative Diagnosis: Asymmetry of the breasts left breast macromastia Postoperative Diagnosis: Same Procedure(s) Performed: Left breast mammoplasty Anesthesia: MAHENDRA Surgeon: Enma Perez Estimated Blood Loss (ml): 20 IV fluids (ml): 1,350 Urine output (ml): 100 Pathology: other (Breast tissue) Condition: stable Disposition: same day Indications for Procedure: Asymmetry of the breast Operative Findings: Fibrofatty breast tissue Description of Procedure: Tiana is a 31-year-old white female who recently underwent resection of recurrent mass in her right breast mammoplasty incision. The pathology was benign. The patient subsequently had marked asymmetry of the breasts. She presents today for mammoplasty of the left breast secondary to the asymmetry. The patient was brought to the operating room and following induction of anesthesia both breasts were prepped and draped in a sterile fashion. The mammoplasty was done via an inferior pedicle approach. In the preoperative area the breasts had been marked for a Galvan pattern reduction mammoplasty. The inferior pedicle skin was de-epithelialized. Following this the vertical limbs were dissected. Dissection of both the vertical limbs was performed the interface between the subcutaneous tissue and the breast tissue. The breast tissue and subcutaneous tissue was resected from the medial and lateral aspects of the Galvan pattern. The superior medial and superior lateral breast flaps were developed in the subcutaneous plane. The wound was well irrigated. The medial and lateral flaps were then brought together to the inferior incision. The subcutaneous tissues were closed using a 3-0 Vicryl suture. 4-0 Monocryl subcuticular suture was placed. A 50 cookie cuter was utilized to anisa the area for the nipple areolar complex. Skin was resected. The nipple areolar complex was brought out. The tissue was secured using 3-0 Vicryl subcutaneous sutures. 4-0 Monocryl subcuticular suture was placed. Nylon skin sutures were placed on all the incisions. Prior to closure had been well irrigated. [address] and was secured with a nylon suture. The patient tolerated procedure in stable condition. All instrument and sponge counts were correct at the end of the case.
--- NOTE | 2021-03-28 11:45 | P.DS ---
Providers Attending physician: Enma García Primary care physician: Gertrude Quiles MD Plan - Discharge Summary Discharge Rx Participant: No New Discharge Prescriptions: No Action Ascorbic Acid [Vitamin C] 1,000 mg PO DAILY Discharge Medication List Ascorbic Acid [Vitamin C] 1,000 mg PO DAILY 03/28/21 [History] Follow up Appointment(s)/Referral(s): Enma García MD [STAFF PHYSICIAN] - 04/06/21 3:20 pm Activity/Diet/Wound Care/Special Instructions: she has also a second appt with dr garcía on april 20 at 4:oo pm. 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
[2021-03-28 11:58] VITALS: TEMP 97.1
[2021-03-28] MEDS ORDERED: ONDANSETRON 4 MG/2 ML VIAL ONE (12:25)
[2021-03-28] MEDS ORDERED: HYDROcodone/APAP 5-325MG 1 EACH TAB ONE (13:49)
[2021-03-28] MEDS ORDERED: HYDROcodone/APAP 5-325MG 1 EACH TAB PO ONE (13:56)
[2021-03-28 14:17] VITALS: BP 131/82; PULSE 91; RESP 17
== END 2021-03-28 14:33 | disposition home or self-care (01) ==
LOC: OR 07:19
PROVIDERS: ATTEND Surgery
DX: N64.89 Other specified disorders of breast (principal); Z83.79 Family history of other diseases of the digestive system; Z80.42 Family history of malignant neoplasm of prostate; Z98.42 Cataract extraction status, left eye; Z98.41 Cataract extraction status, right eye; E23.6 Other disorders of pituitary gland
CPT/HCPCS: 81025; 19318; J2250; J3370; J1100; J2405; J2001; J0692; J3010; J1170; J1885; J0330; J2704; J1644

== ENCOUNTER → 2021-04-05 | Outpatient (CLI) | payer OTHER ==
--- NOTE | 2021-04-05 11:59 | P.PN ---
Progress Note - Text Progress Note Date: 04/05/21 Tiana is a 31-year-old white female postop 03-28-21 from a left breast reduction mammoplasty. This was done secondary to asymmetry from a procedure which had been done on the right breast. The patient was doing well until yesterday when she noticed some erythema of the breast. She has 2 TOSHIA drains with minimal drainage. The output appears to be serous in nature. Pathology revealed breast tissue and some atypical ductal hyperplasia Physical examination: Lungs: Clear Heart: Regular rate and rhythm Incision: Clean and dry/mild erythema in the medial and lateral aspects of the breast TOSHIA drains serous output minimal Plan: 1. DC TOSHIA drains 2. Home antibiotics 3. Follow-up with infectious disease 4. Follow up here tomorrow to assure that the mild erythema has not increased any questions or concerns she should be seen in the emergency room CC: Dr. Quiles
[2021-04-05 12:18] VITALS: BP 140/99; PULSE 98; RESP 18; TEMP 98.1
== END ==
LOC: WWCWWP 11:31
PROVIDERS: ATTEND Surgery
DX: L76.82 Other postprocedural complications of skin and subcutaneous tissue (principal); N60.91 Unspecified benign mammary dysplasia of right breast; Z88.1 Allergy status to other antibiotic agents

== ENCOUNTER → 2021-04-06 | Outpatient (CLI) | payer OTHER ==
[2021-04-06 15:28] VITALS: BP 139/99; PULSE 104; RESP 18; TEMP 98.2
--- NOTE | 2021-04-06 15:39 | P.PN ---
Progress Note - Text Progress Note Date: 04/06/21 Tiana is a 31-year-old white female postop 03-28-21 from a left breast reduction mammoplasty. This was done secondary to asymmetry from a procedure which had been done on the right breast. The patient was doing well until two days ago when she noticed some erythema of the breast. She had 2 TOSHIA drains with minimal drainage removed yesterday. Pathology revealed breast tissue and some atypical ductal hyperplasia. The erythema has decreased at this time. The patient is not complaining of any pain. The patient has not had any fever or chills. Physical examination: Lungs: Clear Heart: Regular rate and rhythm Incision: Clean and dry/mild erythema in the medial and lateral aspects of the breast which is decreased since removal of the TOSHIA drains yesterday. Plan: 1. Continue antibiotics 2. Home antibiotics 3. Follow-up with infectious disease 4. Follow up for suture removal
== END ==
LOC: WWCWWP 15:15
PROVIDERS: ATTEND Surgery
DX: N60.91 Unspecified benign mammary dysplasia of right breast (principal); Z88.1 Allergy status to other antibiotic agents

== ENCOUNTER → 2021-04-20 | Outpatient (CLI) | payer OTHER ==
[2021-04-20 15:22] VITALS: BP 148/100; PULSE 94; RESP 18; TEMP 98.7
--- NOTE | 2021-04-20 15:25 | P.PN ---
Progress Note - Text Progress Note Date: 04/20/21 Tiana is a 31-year-old white female postop 03-28-21 from a left breast reduction mammoplasty. This was done secondary to asymmetry from a procedure which had been done on the right breast. The patient is doing well at this time. She has no fever or chills. She was recently seen by infectious disease on 04-17-21 who felt that everything was going well. She is still on doxycycline. Physical examination: Lungs: Clear Heart: Regular rate and rhythm Incision: The trifurcation area on the left incision site is granulating, all sutures are removed today, no evidence of active infection Plan: 1. Finish antibiotics 2. Follow up here in one month or sooner if any questions or concerns
== END ==
LOC: WWCWWP 14:42
PROVIDERS: ATTEND Surgery
DX: Z09 Encounter for follow-up examination after completed treatment for conditions other than malignant neoplasm (principal); Z98.82 Breast implant status; Z88.1 Allergy status to other antibiotic agents

== ENCOUNTER → 2021-10-11 | Outpatient (CLI) | payer BC ==
--- NOTE | 2021-10-11 13:34 | XR ---
EXAMINATION TYPE: XR chest 2V DATE OF EXAM: 10/11/2021 COMPARISON: 05/14/2020 TECHNIQUE: PA and lateral views submitted. HISTORY: Cough FINDINGS: The lungs are clear and there is no pneumothorax, pleural effusion, or focal pneumonia. Heart size normal. No overt failure. Hypertrophic change of the spine. Lateral view limited due to so ft tissue overlap. Mildly coarsened central interstitium. IMPRESSION: 1. Correlate for mild bronchitis or interstitial pneumonitis..
== END | disposition home or self-care (01) ==
LOC: RADXRMAIN 12:19
PROVIDERS: ATTEND Nurse Practitioner Family
DX: R05.9 Cough, unspecified (principal)
CPT/HCPCS: 71046

== ENCOUNTER → 2022-02-21 | Outpatient (CLI) | payer BC ==
--- NOTE | 2022-02-21 17:06 | CA ---
Transthoracic Echo Report Name: Tiana Cheung Age: 31 Gender: F : 1990 Exam Date: 02/21/2022 14:49 Exam Location: [facility] Ht (in): 63 Wt (lb): 300 Ordering Physician: Ramy Joel MD Attending/Referring Phys: Umu Chapman [facility] Rn Physician Office Felecia Osborne RDCS Procedure CPT: Indications: R55 SYNCOPE AND COLLAPSE Cardiac Hx: Technical Quality: Fair Contrast 1: Total Dose (mL): Contrast 2: Total Dose (mL): MEASUREMENTS (Male / Female) Normal Values 2D ECHO LV Diastolic Diameter PLAX 4.3 cm 4.2 - 5.9 / 3.9 - 5.3 cm LV Systolic Diameter PLAX 2.5 cm IVS Diastolic Thickness 1.3 cm 0.6 - 1.0 / 0.6 - 0.9 cm LVPW Diastolic Thickness 1.3 cm 0.6 - 1.0 / 0.6 - 0.9 cm LV Relative Wall Thickness 0.6 RV Internal Dim ED PLAX 3.7 cm LA Volume 42.7 cm??? 18 - 58 / 22 - 52 cm??? M-MODE Aortic Root Diameter MM 3.0 cm LA Systolic Diameter MM 3.7 cm LA Ao Ratio MM 1.3 AV Cusp Separation MM 2.0 cm DOPPLER AV Peak Velocity 122.5 cm/s AV Peak Gradient 6.0 mmHg LVOT Peak Velocity 83.0 cm/s LVOT Peak Gradient 2.8 mmHg MV Area PHT 3.3 cm??? Mitral E Point Velocity 54.1 cm/s Mitral A Point Velocity 44.9 cm/s Mitral E to A Ratio 1.2 MV Deceleration Time 228.7 ms MV E' Velocity 9.8 cm/s Mitral E to MV E' Ratio 5.5 TR Peak Velocity 203.2 cm/s TR Peak Gradient 16.5 mmHg Right Ventricular Systolic Press 21.5 mmHg FINDINGS Left Ventricle Moderately increased left ventricular wall thickness. Normal left ventricular systolic function with no obvious regional wall motion abnormalities. Left ventricular ejection fraction is estimated at 55-60 %. Right Ventricle Mild right ventricular dilatation. Right ventricular systolic pressure within normal limits. Right Atrium Normal right atrial size. Left Atrium Normal left atrial size. No evidence for an atrial septal defect. Mitral Valve Structurally normal mitral valve. No mitral stenosis, regurgitation or prolapse. Aortic Valve No aortic valve stenosis or regurgitation. Tricuspid Valve Structurally normal tricuspid valve. Mild tricuspid regurgitation. Pulmonic Valve Trace pulmonic regurgitation. Pericardium No pericardial effusion. Aorta Normal size aortic root and proximal ascending aorta. CONCLUSIONS Concentric left ventricular hypertrophy with normal LV systolic function Previewed by: Dr. Cody Vogel MD (Electronically Signed) Final Date: 21 February 2022 17:05
== END | disposition home or self-care (01) ==
LOC: RADECHMAIN 14:39
PROVIDERS: ATTEND Internal Medicine Geriatric Medicine
DX: I07.1 Rheumatic tricuspid insufficiency (principal)
CPT/HCPCS: 93306

== ENCOUNTER → 2022-02-23 | Outpatient (CLI) | payer BC ==
--- NOTE | 2022-02-23 18:33 | EEG ---
ELECTROENCEPHALOGRAM REPORT DATE OF SERVICE: 02/23/2022 PREAMBLE: This is a 31-year-old female with syncope. Patient has been having daily syncopal episodes for about 6 months. She gets dizzy, lightheaded and she needs to lay down or she will pass out. No tongue bite or loss of control of urine with these events. EEG FINDINGS: This is a 21 channel digital EEG recorded with video competent, utilizing 10/20 international system with referential and bipolar montages. Background consists of well-developed, moderately well regulated, predominantly 6 hertz theta activity seen in bihemispheric region. Background does not seem to be clearly reactive to eye opening or closing. Photic driving response was not seen. The patient's background did not improve significantly even after coughing. Different stages of sleep were not seen. No focal or generalized epileptiform activity was seen. The EKG channel showed occasional PVCs. IMPRESSION: This is an abnormal EEG due to background slowing of mild to moderate degree. This is suggestive of generalized cerebral dysfunction as can be seen with toxic metabolic encephalopathy or related to medication effect. Clinical correlation is recommended. No epileptiform activity was seen. MMODL / IJN: [id number] /
== END ==
LOC: NEUROMAIN 07:55
PROVIDERS: ATTEND Internal Medicine Geriatric Medicine
DX: R55 Syncope and collapse (principal); Z88.1 Allergy status to other antibiotic agents
CPT/HCPCS: 95819

== ENCOUNTER → 2022-05-04 | Outpatient (CLI) | payer BC ==
--- NOTE | 2022-05-04 17:03 | XR ---
EXAMINATION TYPE: XR cervical spine comp DATE OF EXAM: 05/04/2022 4:42 PM INDICATION: Patient age:Female; 32 years old; Reason for study: M54.2 CERVICALGIA; . COMPARISON: None TECHNIQUE: The cervical spine was imaged in 4 projections. Frontal, lateral, odontoid bilateral obliq ue and Swimmer's. FINDINGS: The osseous structures show normal alignment without evidence of an acute fracture. Minimal osteophyt e formation.. The intervertebral disk spaces are preserved. Pedicles are intact. Soft tissues are w ithin normal limits. The odontoid appears intact. IMPRESSION: 1. No fracture or dislocation. 2. Minimal degenerative disc disease changes of the cervical spine.
== END | disposition home or self-care (01) ==
LOC: RADXRMAIN 16:15
PROVIDERS: ATTEND Nurse Practitioner Family
DX: M50.30 Other cervical disc degeneration, unspecified cervical region (principal)
CPT/HCPCS: 72050

== ENCOUNTER 2022-07-13 22:19 | Emergency (ER) | payer BC ==
--- NOTE | 2022-07-13 23:59 | ED ---
General Adult HPI - General Chief complaint: Abdominal Pain Stated complaint: lower side pain right Time Seen by Provider: 07/13/22 23:44 Source: patient, RN notes reviewed Mode of arrival: ambulatory Limitations: no limitations - History of Present Illness Initial comments: This is a pleasant 32-year-old female comes to the ER complaining of right low back pain which she's had for about 2 months. She states is exacerbated by prolonged standing and walking. Palpation. Patient denying any problems with bowel movements. Denies any urinary retention. Patient states that she feels like she has to urinate more frequently usual and states that if she doesn't make it to the bathroom she will leak a bit of urine. No fever or chills. No direct injury. Patient has not seen her regular doctor. Patient states the pain starts out all but after a while becomes sharp. No headache, no fever or chills, no changes in vision or hearing, no sore throat or difficulty with speech, no neck pain, no chest pain or shortness of breath, no abdominal pain, no nausea or vomiting, no changes in uowel movements, no numbness or tingling, no extremity pain, no skin rashes or lesions. Past medical, surgical, social, and family history reviewed. - Related Data Home Medications Medication Instructions Recorded Confirmed Ascorbic Acid [Vitamin C] 1,000 mg PO DAILY 03/28/21 04/20/21 Doxycycline [Vibramycin] 100 mg PO BID 04/06/21 04/20/21 Previous Rx's Medication Instructions Recorded Acetaminophen Tab [Tylenol Tab] 500 mg PO Q6H PRN #24 tablet 07/14/22 Cyclobenzaprine [Flexeril] 10 mg PO TID PRN #20 tab 07/14/22 Naproxen [Naprosyn] 375 mg PO Q12HR PRN #20 tablet 07/14/22 Allergies Allergy/AdvReac Type Severity Reaction Status Date / Time ciprofloxacin [From Cipro] Allergy Nausea & Verified 07/13/22 22:36 Vomiting doxycycline Allergy Nausea & Verified 07/13/22 22:36 Vomiting Review of Systems ROS Statement: Those systems with pertinent positive or pertinent negative responses have been documented in the HPI. ROS Other: All systems not noted in ROS Statement are negative. Past Medical History Past Medical History: Eye Disorder, Hypertension Additional Past Medical History / Comment(s): cataracts, spinal fluid leakage, Empty Sella Syndrome, headaches. Drained spinal fluid 1 year AGO.sleep apnea History of Any Multi-Drug Resistant Organisms: None Reported Past Surgical History: Adenoidectomy, Breast Surgery Additional Past Surgical History / Comment(s): right eye cataract, ear tubes x 2. Spinal fluid drained 1 YEAR AGO. Past Anesthesia/Blood Transfusion Reactions: Postoperative Nausea & Vomiting (PONV) Past Psychological History: No Psychological Hx Reported Smoking Status: Never smoker Past Alcohol Use History: None Reported Past Drug Use History: None Reported - Past Family History Mother Family Medical History: No Reported History Additional Family Medical History / Comment(s): Maternal grandmother breast cancer, maternal grandfather prostate cancer no other significant family his tory General Exam - General Exam Comments Initial Comments: Patient does not appear to be ill or toxic. Limitations: no limitations General appearance: obese Head exam: Present: atraumatic, normocephalic, normal inspection Eye exam: Present: normal appearance, PERRL, EOMI. Absent: scleral icterus, conjunctival injection, periorbital swelling ENT exam: Present: normal exam, mucous membranes moist Neck exam: Present: normal inspection, full ROM. Absent: tenderness, meningismus, lymphadenopathy Respiratory exam: Present: normal lung sounds bilaterally. Absent: respiratory distress, wheezes, rales, rhonchi, stridor, chest wall tenderness Cardiovascular Exam: Present: regular rate, normal rhythm, normal heart sounds. Absent: systolic murmur, diastolic murmur, rubs, gallop, clicks GI/Abdominal exam: Present: soft, normal bowel sounds. Absent: distended, tenderness, guarding, rebound, rigid Extremities exam: Present: normal inspection, full ROM, normal capillary refill. Absent: tenderness, pedal edema, joint swelling, calf tenderness Back exam: Present: normal inspection, full ROM, tenderness (Patient has tenderness to the right lumbar paraspinals. No erythema. No break in skin integrity. No rash or lesion.), paraspinal tenderness. Absent: CVA tenderness (R), CVA tenderness (L), muscle spasm, vertebral tenderness, rash noted Neurological exam: Present: alert, oriented X3, CN II-XII intact, normal gait, reflexes normal, other (Straight leg raise negative bilaterally. Great toe extensor strength +5 out of 5.). Absent: abnormal gait, motor sensory deficit Psychiatric exam: Present: normal affect, normal mood Skin exam: Present: warm, dry, intact, normal color. Absent: rash Course Vital Signs 07/13/22 22:34 Temperature 98.1 F Pulse Rate 101 H Respiratory 20 Rate Blood Pressure 158/87 O2 Sat by Pulse 98 Oximetry Medical Decision Making - Medical Decision Making Given the length of the patient's symptomology and going to obtain plain film x- rays. Will also run a test and a urinalysis. Going to order a bladder scan as the patient has been complaining of some urinary frequency and does not appear to have any infectious process. - Lab Data Lab Results 07/14/22 07/14/22 Range/Units 00:36 00:36 Urine Color Yellow Urine Appearance Clear (Clear) Urine pH 5.0 (5.0-8.0) Ur Specific Donovan 1.035 (1.001-1.035) Urine Protein Trace H (Negative) Urine Glucose (UA) Negative (Negative) Urine Ketones Trace H (Negative) Urine Blood Small H (Negative) Urine Nitrite Negative (Negative) Urine Bilirubin Negative (Negative) Urine Urobilinogen <2.0 (<2.0) mg/dL Ur Leukocyte Esterase Negative (Negative) Urine RBC 3 (0-5) /hpf Urine WBC 7 H (0-5) /hpf Ur Squamous Epith Cells 3 (0-4) /hpf Urine Mucus Occasional H (None) /hpf Urine HCG, Qual Not Detected (Not Detectd) Disposition Clinical Impression: Acute low back pain Disposition: HOME SELF-CARE Condition: Good Instructions (If sedation given, give patient instructions): Back Pain (ED) Additional Instructions: Call at 8 AM Saturday to schedule follow-up with the orthopedic physician. Follow-up with your regular physician as directed. Return to the ER immediately if any symptoms worsen, new symptoms arise, or any other problems develop. Prescriptions: Cyclobenzaprine [Flexeril] 10 mg PO TID PRN #20 tab PRN Reason: Spasms Naproxen [Naprosyn] 375 mg PO Q12HR PRN #20 tablet PRN Reason: Pain Acetaminophen Tab [Tylenol Tab] 500 mg PO Q6H PRN #24 tablet PRN Reason: Pain Is patient prescribed a controlled substance at d/c from ED?: No Referrals: Christina Bedolla DO [Doctor of Osteopathic Medicine] - As Soon As Possible Abdifatah,Kyara, MD [Primary Care Provider] - As Soon As Possible Time of Disposition: 01:38
[2022-07-14 00:51] LABS: Appearance,Urine Clear (Clear); Bilirubin,Urine Negative (Negative); Blood,Urine Small (Negative); Color,Urine Yellow; Glucose,Urine (UA) Negative (Negative); Ketones,Urine Trace (Negative); Leukocyte Esterase,Urine Negative (Negative); Mucus,Urine Occasional /hpf; Nitrite,Urine Negative (Negative); Protein,Urine Trace (Negative); RBC,Urine 3 /hpf (0-5); Specific Gravity,Urine 1.035 (1.001-1.035); Squamous Epithelial Cell,Urine 3 /hpf (0-4); Urobilinogen,Urine <2.0 mg/dL (<2.0); WBC,Urine 7 /hpf (0-5)
[2022-07-14] MEDS ORDERED: CYCLOBENZAPRINE 10MG STARTER 3 TAB BTL PO STA (01:39)
[2022-07-14] MEDS ORDERED: IBUPROFEN 600 MG STARTER PACK 4 TAB BTL PO STA (01:39)
--- NOTE | 2022-07-14 01:53 | XR ---
EXAMINATION TYPE: XR lumbar spine 2 or 3V DATE OF EXAM: 07/14/2022 COMPARISON: NONE HISTORY: Low back pain TECHNIQUE: 3 views FINDINGS: Lumbar vertebral abnormal spacing and alignment. Posterior elements are intact. No compress ion fracture. Sacroiliac joints are intact. IMPRESSION: Negative lumbar spine exam. No fracture.
[2022-07-14 02:31] VITALS: BP 156/91; PULSE 99; RESP 18; TEMP 97.9
== END 2022-07-14 02:31 | disposition home or self-care (01) ==
LOC: EC 22:19
DX: M54.50 Low back pain, unspecified (principal); I10 Essential (primary) hypertension; Z79.899 Other long term (current) drug therapy; Z88.1 Allergy status to other antibiotic agents
CPT/HCPCS: 51798; 72100; 81001; 81025; 99284

== ENCOUNTER 2023-09-10 17:28 | Emergency (ER) | payer BC, OTHER ==
--- NOTE | 2023-09-10 20:05 | ED ---
Female Urogenital HPI - General Chief complaint: Vaginal Bleeding Stated complaint: Vaginal Bleeding Time Seen by Provider: 09/10/23 20:04 Source: patient Mode of arrival: ambulatory Limitations: no limitations - History of Present Illness Initial comments: 33-year-old female presenting with chief complaint of vaginal bleeding. Patient is currently on her menstrual cycle and states that today for approximately 3 hours she had heavy bleeding in which she bled through sanitary napkins, her underwear, and her pants. States that since then the bleeding has slowed down. She was having cramping at that time and cramping has subsided. Lightheadedness or dizziness. No nausea or vomiting. No chest pain or difficulty breathing. Last Menstrual Period: 09/09/23 - Related Data Home Medications Medication Instructions Recorded Confirmed Ascorbic Acid [Vitamin C] 1,000 mg PO DAILY 03/28/21 02/21/23 Doxycycline [Vibramycin] 100 mg PO BID 04/06/21 02/21/23 Previous Rx's Medication Instructions Recorded Acetaminophen Tab [Tylenol Tab] 500 mg PO Q6H PRN #24 tablet 07/14/22 Cyclobenzaprine [Flexeril] 10 mg PO TID PRN #20 tab 07/14/22 Naproxen [Naprosyn] 375 mg PO Q12HR PRN #20 tablet 07/14/22 Allergies Allergy/AdvReac Type Severity Reaction Status Date / Time ciprofloxacin [From Cipro] Allergy Nausea & Verified 09/10/23 18:25 Vomiting doxycycline Allergy Nausea & Verified 09/10/23 18:25 Vomiting Review of Systems ROS Statement: Those systems with pertinent positive or pertinent negative responses have been documented in the HPI. ROS Other: All systems not noted in ROS Statement are negative. Past Medical History Past Medical History: Eye Disorder, Hypertension Additional Past Medical History / Comment(s): cataracts, spinal fluid leakage, Empty Sella Syndrome, headaches. Drained spinal fluid 1 year AGO.sleep apnea History of Any Multi-Drug Resistant Organisms: None Reported Past Surgical History: Adenoidectomy, Breast Surgery Additional Past Surgical History / Comment(s): right eye cataract, ear tubes x 2. Spinal fluid drained 1 YEAR AGO. Past Anesthesia/Blood Transfusion Reactions: Postoperative Nausea & Vomiting (PONV) Past Psychological History: No Psychological Hx Reported Smoking Status: Never smoker Past Alcohol Use History: None Reported Past Drug Use History: None Reported - Past Family History Mother Family Medical History: No Reported History Additional Family Medical History / Comment(s): Maternal grandmother breast cancer, maternal grandfather prostate cancer no other significant family history General Exam - General Exam Comments Initial Comments: Visual Physical Exam Vital signs reviewed General: Well-appearing, nontoxic, no acute distress. Head: Normocephalic, atraumatic Eyes: PERRLA, EOMI ENT: Airway patent Chest: Nonlabored breathing Skin: No visual rash, normal skin tone Neuro: Alert and oriented 3 Musculoskeletal: No gross abnormalities Limitations: no limitations General appearance: alert, in no apparent distress Head exam: Present: atraumatic, normocephalic Eye exam: Present: normal appearance, EOMI Neck exam: Present: normal inspection Respiratory exam: Present: normal lung sounds bilaterally. Absent: respiratory distress, wheezes, rales, rhonchi, stridor Cardiovascular Exam: Present: regular rate, normal rhythm, normal heart sounds. Absent: systolic murmur, diastolic murmur, rubs, gallop, clicks GI/Abdominal exam: Present: soft. Absent: distended, tenderness, guarding, rebound, rigid Expanded Female exam: Present: deferred Neurological exam: Present: alert, oriented X3 Psychiatric exam: Present: normal affect, normal mood Skin exam: Present: warm, dry Course Vital Signs 09/10/23 09/10/23 18:22 22:32 Temperature 97.7 F 98.0 F Pulse Rate 87 90 Respiratory 18 19 Rate Blood Pressure 179/89 161/109 O2 Sat by Pulse 98 98 Oximetry Medical Decision Making - Medical Decision Making Was pt. sent in by a medical professional or institution (, PA, [facility] [employer], urgent care, hospital, or custodial...) When possible be specific @ -No Did you speak to anyone other than the patient for history (EMS, parent, family, police, friend...)? What history was obtained from this source @ -No Did you review nursing and triage notes (agree or disagree)? Why? @ -I reviewed and agree with nursing and triage notes Were old charts reviewed (outside hosp., previous admission, EMS record, old EKG, old radiological studies, urgent care reports/EKG's, custodial records)? Report findings @ -No old charts were reviewed Differential Diagnosis (chest pain, altered mental status, abdominal pain women, abdominal pain men, vaginal bleeding, weakness, fever, dyspnea, syncope, headache, dizziness, GI bleed, back pain, seizure, CVA, palpatations, mental health, musculoskeletal)? @ -MDM Differential Vaginal Bleeding: Spontaneous , threatened , molar , ectopic , bloody show, incompetent cervix, abruptioplacenta, placenta previa, uterine rupture, dysfunctional uterine bleeding, hemorrhage, uterine fibroids. ... This is not meant to be an all-inclusive list EKG interpreted by me (3pts min.). @ -As above X-rays interpreted by me (1pt min.). @ -None done CT interpreted by me (1pt min.). @ -None done U/S interpreted by me (1pt. min.). @ -None done What testing was considered but not performed or refused? (CT, X-rays, U/S, labs)? Why? @ -None What meds were considered but not given or refused? Why? @ -None Did you discuss the management of the patient with other professionals (professionals i.e. , PA, [employer], lab, RT, psych nurse, addiction social worker, pst specialist, teacher, navigation officer, mental health case manager)? Give summary @ -No Was smoking cessation discussed for >3mins.? @ -No Was critical care preformed (if so, how long)? @ -No Were there social determinants of health that impacted care today? How? (Homelessness, low income, unemployed, alcoholism, drug addiction, transportation, low edu. Level, literacy, decrease access to med. care, senior care, rehab)? @ -No Was there de-escalation of care discussed even if they declined (Discuss DNR or withdrawal of care, Hospice)? DNR status @ -No What co-morbidities impacted this encounter? (DM, HTN, Smoking, COPD, CAD, Cancer, CVA, ARF, Chemo, Hep., AIDS, mental health diagnosis, sleep apnea, morbid obesity)? @ -None Was patient admitted / discharged? Hospital course, mention meds given and route, prescriptions, significant lab abnormalities, going to OR and other p ertinent info. @ -3-year-old female presenting with chief complaint of vaginal bleeding. Patient is currently on her menstrual cycle and states today she had a 3 hour period of time with heavy bleeding. This bleeding extensively. History and physical exam were conducted. Patient is hemodynamically stable. WBC 13.7 hemoglobin is 14.6. Urine hCG is negative. Urine is positive for blood which is to be expected. On reassessment patient showed no acute signs of distress. She is educated on today's findings and instructed to follow-up with MALE IMPERSONATOR. Follow-up with PCP. Report back to ER with any new or worsening symptoms. Discussed return parameters and answered all questions. Patient conveyed verbal understanding and agreed to the plan. I discussed this case in detail with my attending Dr. Oh Undiagnosed new problem with uncertain prognosis? @ -No Drug Therapy requiring intensive monitoring for toxicity (Heparin, Nitro, Insulin, Cardizem)? @ -No Were any procedures done? @ -No Diagnosis/symptom? @ -Menorrhagia Acute, or Chronic, or Acute on Chronic? @ -Acute Uncomplicated (without systemic symptoms) or Complicated (systemic symptoms)? @ -Uncomplicated Side effects of treatment? @ -No Exacerbation, Progression, or Severe Exacerbation? @ -No Poses a threat to life or bodily function? How? (Chest pain, [place], [place], pneumonia, PE, COPD, DKA, ARF, appy, cholecystitis, CVA, Diverticulitis, Homicidal, Suicidal, threat to staff... and all critical care pts) @ -No - Lab Data Result diagrams: 09/10/23 20:27 09/10/23 20:27 Lab Results 09/10/23 09/10/23 09/10/23 Range/Units 20:12 20:12 20:27 WBC 13.7 H (3.8-10.6) k/uL RBC 5.02 (3.80-5.40) m/uL Hgb 14.6 (11.4-16.0) gm/dL Hct 42.7 (34.0-46.0) % MCV 85.0 (80.0-100.0) fL MCH 29.1 (25.0-35.0) pg MCHC 34.2 (31.0-37.0) g/dL RDW 13.6 (11.5-15.5) % Plt Count 377 (150-450) k/uL MPV 7.6 Neutrophils % (Manual) 53 % Lymphocytes % (Manual) 44 % Monocytes % (Manual) 2 % Eosinophils % (Manual) 1 % Neutrophils # (Manual) 7.26 (1.3-7.7) k/uL Lymphocytes # (Manual) 6.03 H (1.0-4.8) k/uL Monocytes # (Manual) 0.27 (0-1.0) k/uL Eosinophils # (Manual) 0.14 (0-0.7) k/uL Nucleated RBCs 0 (0-0) /100 WBC Manual Slide Review Performed Reactive Lymphocytes Present Sodium (137-145) mmol/L Potassium (3.5-5.1) mmol/L Chloride (98-107) mmol/L Carbon Dioxide (22-30) mmol/L Anion Gap mmol/L BUN (7-17) mg/dL Creatinine (0.52-1.04) mg/dL Est GFR (CKD-EPI)AfAm (>60 ml/min/1.73 sqM) Est GFR (CKD-EPI)NonAf (>60 ml/min/1.73 sqM) Glucose (74-99) mg/dL Calcium (8.4-10.2) mg/dL Total Bilirubin (0.2-1.3) mg/dL AST (14-36) U/L ALT (4-34) U/L Alkaline Phosphatase (38-126) U/L Total Protein (6.3-8.2) g/dL Albumin (3.5-5.0) g/dL Urine Color Light Red Urine Appearance Cloudy H (Clear) Urine pH 5.0 (5.0-8.0) Ur Specific [place] 1.027 (1.001-1.035) Urine Protein 1+ H (Negative) Urine Glucose (UA) Negative (Negative) Urine Ketones Negative (Negative) Urine Blood Large H (Negative) Urine Nitrite Negative (Negative) Urine Bilirubin Negative (Negative) Urine Urobilinogen <2.0 (<2.0) mg/dL Ur Leukocyte Esterase Negative (Negative) Urine RBC >182 H (0-5) /hpf Urine WBC 5 (0-5) /hpf Ur Squamous Epith Cells <1 (0-4) /hpf Calcium Oxalate Crystal Many H (None) /hpf Urine Bacteria Occasional H (None) /hpf Urine Mucus Rare H (None) /hpf Urine Yeast (Budding) Few H (None) /hpf Urine HCG, Qual Not Detected (Not Detectd) 09/10/23 Range/Units 20:27 WBC (3.8-10.6) k/uL RBC (3.80-5.40) m/uL Hgb (11.4-16.0) gm/dL Hct (34.0-46.0) % MCV (80.0-100.0) fL MCH (25.0-35.0) pg MCHC (31.0-37.0) g/dL RDW (11.5-15.5) % Plt Count (150-450) k/uL MPV Neutrophils % (Manual) % Lymphocytes % (Manual) % Monocytes % (Manual) % Eosinophils % (Manual) % Neutrophils # (Manual) (1.3-7.7) k/uL Lymphocytes # (Manual) (1.0-4.8) k/uL Monocytes # (Manual) (0-1.0) k/uL Eosinophils # (Manual) (0-0.7) k/uL Nucleated RBCs (0-0) /100 WBC Manual Slide Review Reactive Lymphocytes Sodium 138 (137-145) mmol/L Potassium 4.0 (3.5-5.1) mmol/L Chloride 104 (98-107) mmol/L Carbon Dioxide 24 (22-30) mmol/L Anion Gap 10 mmol/L BUN 16 (7-17) mg/dL Creatinine 0.65 (0.52-1.04) mg/dL Est GFR (CKD-EPI)AfAm >90 (>60 ml/min/1.73 sqM) Est GFR (CKD-EPI)NonAf >90 (>60 ml/min/1.73 sqM) Glucose 148 H (74-99) mg/dL Calcium 9.2 (8.4-10.2) mg/dL Total Bilirubin 0.3 (0.2-1.3) mg/dL AST 22 (14-36) U/L ALT 28 (4-34) U/L Alkaline Phosphatase 73 (38-126) U/L Total Protein 7.4 (6.3-8.2) g/dL Albumin 4.3 (3.5-5.0) g/dL Urine Color Urine Appearance (Clear) Urine pH (5.0-8.0) Ur Specific [place] (1.001-1.035) Urine Protein (Negative) Urine Glucose (UA) (Negative) Urine Ketones (Negative) Urine Blood (Negative) Urine Nitrite (Negative) Urine Bilirubin (Negative) Urine Urobilinogen (<2.0) mg/dL Ur Leukocyte Esterase (Negative) Urine RBC (0-5) /hpf Urine WBC (0-5) /hpf Ur Squamous Epith Cells (0-4) /hpf Calcium Oxalate Crystal (None) /hpf Urine Bacteria (None) /hpf Urine Mucus (None) /hpf Urine Yeast (Budding) (None) /hpf Urine HCG, Qual (Not Detectd) Disposition Clinical Impression: Menorrhagia Disposition: HOME SELF-CARE Condition: Good Instructions (If sedation given, give patient instructions): Menorrhagia (ED) Additional Instructions: Follow-up with MALE IMPERSONATOR, suggestion provided if needed. Report back to ER if any new or worsening symptoms. Is patient prescribed a controlled substance at d/c from ED?: No Referrals: Kyara Gardiner MD [Primary Care Provider] - 1-2 days Kristy Gonzalez DO [Doctor of Osteopathic Medicine] - 1-2 days Time of Disposition: 22:24
[2023-09-10 20:43] LABS: Appearance,Urine Cloudy (Clear); Bacteria,Urine Occasional /hpf; Bilirubin,Urine Negative (Negative); Blood,Urine Large (Negative); Budding Yeast,Urine Few /hpf; Calcium Oxalate Crystals,Urine Many /hpf; Color,Urine Light Red; Glucose,Urine (UA) Negative (Negative); Ketones,Urine Negative (Negative); Leukocyte Esterase,Urine Negative (Negative); Mucus,Urine Rare /hpf; Nitrite,Urine Negative (Negative); Protein,Urine 1+ (Negative); RBC,Urine >182 /hpf (0-5); Specific Gravity,Urine 1.027 (1.001-1.035); Squamous Epithelial Cell,Urine <1 /hpf (0-4); Urobilinogen,Urine <2.0 mg/dL (<2.0); WBC,Urine 5 /hpf (0-5)
[2023-09-10 20:54] LABS: HCT 42.7 % (34.0-46.0); HGB 14.6 gm/dL (11.4-16.0); MCH 29.1 pg (25.0-35.0); MCHC 34.2 g/dL (31.0-37.0); Mean Platelet Volume 7.6; Platelet Count 377 k/uL (150-450); RBC 5.02 m/uL (3.80-5.40); RDW 13.6 % (11.5-15.5); WBC 13.7 k/uL (3.8-10.6)
[2023-09-10 21:04] LABS: ALT 28 U/L (4-34); AST 22 U/L (14-36); African American GFR (CKD) >90 (>60 ml/min/1.73 sqM); Albumin 4.3 g/dL (3.5-5.0); Alkaline Phosphatase 73 U/L (38-126); Anion Gap 10 mmol/L; Blood Urea Nitrogen 16 mg/dL (7-17); Calcium 9.2 mg/dL (8.4-10.2); Carbon Dioxide 24 mmol/L (22-30); Chloride 104 mmol/L (98-107); Glucose 148 mg/dL (74-99); Non-African American GFR(CKD) >90 (>60 ml/min/1.73 sqM); Sodium 138 mmol/L (137-145); Total Bilirubin 0.3 mg/dL (0.2-1.3); Total Protein 7.4 g/dL (6.3-8.2)
[2023-09-10 21:37] LABS: Eosinophils # (M) 0.14 k/uL (0-0.7); Lymphocytes # (M) 6.03 k/uL (1.0-4.8); Monocytes # (M) 0.27 k/uL (0-1.0); Neutrophils # (M) 7.26 k/uL (1.3-7.7); Neutrophils % (M) 53 %; Nucleated Red Blood Cells 0 /100 WBC (0-0); Reactive Lymphocytes Present; Total Cells Counted 100
[2023-09-10 22:51] VITALS: BP 161/109; PULSE 90; RESP 19; TEMP 98
== END 2023-09-10 22:47 | disposition home or self-care (01) ==
LOC: EC 17:28
DX: N92.0 Excessive and frequent menstruation with regular cycle (principal); I10 Essential (primary) hypertension; Z88.8 Allergy status to other drugs, medicaments and biological substances
CPT/HCPCS: 36415; 80053; 81001; 81025; 85025; 99284

== ENCOUNTER → 2023-09-27 | Outpatient (CLI) | payer BC, OTHER ==
--- NOTE | 2023-09-27 17:17 | US ---
EXAMINATION TYPE: US pelvic complete DATE OF EXAM: 09/27/2023 COMPARISON: NONE CLINICAL INDICATION: Female, 33 years old with history of N92.0 MEORRHAGIA; Patient states having a h eavy period for last menses. TECHNIQUE: Transabdominal (TA). Transabdominal sonographic images of the pelvis were acquired. Date of LMP: 09/09/2023, G0 EXAM MEASUREMENTS: Uterus: 7.8 x 4.4 x 3.3 cm Endometrial Stripe: 0.6 cm Right Ovary: 3.9 x 3.2 x 2.4 cm Left Ovary: 3.8 x 2.5 x 2.5 cm 1. Uterus: Anteverted Appears slightly heterogenous 2. Endometrium: wnl in thickness 3. Right Ovary: follicles seen 4. Left Ovary: follicles seen 5. Bilateral Adnexa: wnl 6. Posterior cul-de-sac: no free fluid IMPRESSION: Uterine myometrium appears to be slightly heterogenous signal which is nonspecific.
== END | disposition home or self-care (01) ==
LOC: RADUSWWP 15:31
PROVIDERS: ATTEND Internal Medicine Geriatric Medicine
DX: N92.0 Excessive and frequent menstruation with regular cycle (principal)
CPT/HCPCS: 76856

== ENCOUNTER 2025-03-12 11:08 | Day surgery (SDC) | payer BC, OTHER ==
[2025-03-12 11:50] LABS: Glucose,Whole Blood 98 mg/dL (70-110)
[2025-03-12] MEDS: IV FLUID CONTINUATION 1,000 ML IV ONE ×2 (12:01→13:39)
[2025-03-12] MEDS: LACTATED RINGERS 1,000 ML BAG IV STA (12:01)
[2025-03-12 12:09] VITALS: RESP 16; TEMP 98.1
[2025-03-12] MEDS ORDERED: fentaNYL (PF) 50 MCG/ML 2 ML AMP ONE (12:55)
[2025-03-12] MEDS ORDERED: MIDAZOLAM 2 MG/2 ML VIAL ONE (12:55)
--- NOTE | 2025-03-12 13:17 | P.PCN ---
Description of Procedure: Preprocedure diagnosis. Vision change. Postprocedure diagnosis. As above. Procedure done. Lumbar puncture and collection of cerebrospinal fluid. Anesthesia. Local infiltration with anesthetics. Continuous pulse ox, EKG, blood pressure and verbal communication was maintained with the patient. Blood loss. None. Indication. Discussed the procedure, alternatives, complications which may include infection, nerve damage, paralysis, aggravation of the symptoms especially bleeding in the spine and post dural puncture headache with the patient. The patient understands and all questions were answered. Procedure note. After getting concentration in the procedure room in sitting position. Back prepped with chlorhexidine and draped in sterile fashion. After injecting 3 mL of 1% lidocaine subcutaneously, a 23-gauge spinal needle was introduced at L4-5 interspace. Positive CSF, negative blood, negative paresthesia. CSF color was clear. CSF was collected in 4 supplied sterile containers in sequence. Opening pressure was 55 cm. Closing pressure was 36 cm. Spinal needle was taken out and bandage was applied. Disposition. Will attempt to contact referring physicians office to let them know the opening and closing pressure. Patient tolerated the procedure well. No complication. Advised patient to lay flat one-hour postprocedure. The rest of the day today try to lay flat as much as possible. Next 3 days drink lots of fluid especially caffeinated beverages, and avoid constipation cough and doing strenuous physical work. Discharged home in stable condition.
[2025-03-12 14:03] LABS: Glucose,CSF 71 mg/dL (40-70)
[2025-03-12 15:07] VITALS: BP 109/85; PULSE 86
== END 2025-03-12 15:09 | disposition home or self-care (01) ==
LOC: ORPAIN 11:08
PROVIDERS: ATTEND Pain Medicine Interventional Pain Medicine
DX: H47.391 Other disorders of optic disc, right eye (principal); R60.9 Edema, unspecified; Z88.1 Allergy status to other antibiotic agents
CPT/HCPCS: 81025; 88108; 84157; 82945; 62270; J2250; J3010; 99152

== ENCOUNTER → 2025-03-17 | Outpatient (CLI) | payer BC ==
--- NOTE | 2025-03-17 21:43 | MR ---
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 Post contrast i maging was performed after the administration. FINDINGS, ORBITS: Bilateral aphakia. There is some mild increased T2 signal within the subarachnoid space around the bilateral optic nerves with some distention. There is flattening of the posterior gl obes bilaterally. Symmetric appearance of both globes. No protrusions of the optic nerve. No signific ant Meckel's cave enlargement. The intraorbital fat appears preserved. Both lacrimal glands are unre markable. The extraocular muscles appear symmetric. After administration of contrast, no abnormal enh ancement is seen. FINDINGS, BRAIN: Age-appropriate cerebral parenchymal volume. The mcdaniel-white junctions, ventricular s ystem, and cisterns do appear unremarkable. Diffusion-weighted imaging shows no evidence of restrict ed diffusion. Marginal increase appearance of partial empty sella. No FLAIR signal abnormalities. Ca vernous sinus is within normal limits. The susceptibility weighted images do not reveal any evidence for micro-hemorrhage. After administration of contrast, no abnormal enhancement is seen within the b rain. IMPRESSION: 1. Findings described above which can be seen with mild idiopathic intracranial hypertension. Correla te clinically. No abnormal orbital contrast enhancement or mass identified. 2. No evidence of intracranial mass nor acute/subacute CVA accident. [facility], , 03/17/2025 9:40 PM
--- NOTE | 2025-03-17 21:52 | MR ---
INDICATION: Patient age:Female; 34 years old; Reason for study: H47.343; [facility]. Comparison: MR brain/orbits of the same date, MR brain 02/04/2020, CT brain 12/11/2019 TECHNIQUE: MRV of the brain was performed utilizing two-dimensional [id number] technique. FINDINGS: There is no evidence of venous occlusion or collateral circulation. There is no evidence of sinus th rombosis. IMPRESSION: No evidence of venous sinus thrombosis. [facility], , 03/17/2025 9:49 PM
== END | disposition home or self-care (01) ==
LOC: RADMRIMAIN 20:15
PROVIDERS: ATTEND Student in an Organized Health Care Education/Training Program
DX: R42 Dizziness and giddiness (principal)
CPT/HCPCS: 70546; 70543; 70553; A9585